=== PATIENT | male | born 1950 | race Caucasian/White ===

== ENCOUNTER 2017-11-04 15:49 | Inpatient (IN) | payer MEDICARE, OTHER ==
[2017-11-04] VITALS (7 sets, daily range): BP systolic 146–171; BP diastolic 75–91
[~2017-11-04] VITALS: Ht 177.8 cm; Wt 90.7 kg
--- OUTSIDE RECORDS SUMMARY | 2017-11-04 15:54 | XMS REPORT | Continuity of Care Document ---
Author Author [facility] Organization [facility] Address Unknown Phone Unavailable Allergies There is no data. Medications There is no data. Problems Date Dx Coded Attending Type Code Diagnosis Diagnosed By 11/05/2014 Ot 717.2 11/05/2014 Ot 719.06 Procedures There is no data. Results There is no data. Encounters ACCT No. Visit Date/Time Discharge Status Pt. Type Provider Facility Loc./Unit Complaint [id number] 05/05/2013 15:05:00 05/05/2013 23:59:59 [facility] Outpatient [id number] 03/05/2013 13:51:00 03/05/2013 23:59:59 [facility] Outpatient [id number] 10/13/2014 07:45:00 Document Registration
[2017-11-04] MEDS ORDERED: ALPR0.254 (15:59)
[2017-11-04] MEDS ORDERED: ALBU18HF2 (15:59)
[2017-11-04] MEDS ORDERED: LISI10TA2 (15:59)
[2017-11-04] MEDS ORDERED: LOVA20TA2 (15:59)
[2017-11-04] MEDS ORDERED: NS IV 1000 ML 1,000 ML IV SCH ×2 (16:07→16:45)
[2017-11-04 16:20] LABS: BASOPHILS % (AUTO) 0 % (0-10); EOSINOPHILS % (AUTO) 1 % (0-10); HEMATOCRIT 43 % (40-54); HEMOGLOBIN 14.8 G/DL (13.3-17.7); LYMPHOCYTES # (AUTO) 1.3 X 10^3 (1.0-4.0); LYMPHOCYTES % (AUTO) 15 % (12-44); MEAN CORPUSCULAR HEMOGLOBIN 32 PG (25-34); MEAN CORPUSCULAR HGB CONC 35 G/DL (32-36); MEAN CORPUSCULAR VOLUME 91 FL (80-99); MEAN PLATELET VOLUME 11.2 FL (7.4-10.4); MONOCYTES # (AUTO) 1.3 X 10^3 (0.0-1.0); MONOCYTES % (AUTO) 15 % (0-12); NEUTROPHILS # (AUTO) 5.8 X 10^3 (1.8-7.8); NEUTROPHILS % (AUTO) 69 % (42-75); PLATELET COUNT 193 10^3/uL (130-400); RED BLOOD COUNT 4.66 10^6/uL (4.35-5.85); RED CELL DISTRIBUTION WIDTH 13.6 % (10.0-14.5); WHITE BLOOD COUNT 8.5 10^3/uL (4.3-11.0)
[2017-11-04 16:41] LABS: ALANINE AMINOTRANSFERASE 23 U/L (0-55); ALBUMIN 4.3 GM/DL (3.2-4.5); ALKALINE PHOSPHATASE 87 U/L (40-136); BILIRUBIN,TOTAL 0.5 MG/DL (0.1-1.0); BUN/CREATININE RATIO 12; CALCIUM 8.8 MG/DL (8.5-10.1); CARBON DIOXIDE 22 MMOL/L (21-32); CHLORIDE 100 MMOL/L (98-107); CREATININE SERUM 1.11 MG/DL (0.60-1.30); GFR ESTIMATED > 60; GLUCOSE 170 MG/DL (70-105); POTASSIUM 5.5 MMOL/L (3.6-5.0); SODIUM 132 MMOL/L (135-145); TOTAL PROTEIN 7.6 GM/DL (6.4-8.2)
[2017-11-04] MEDS ORDERED: NS IV 1000 ML 1,000 ML IV ONE ×2 (17:00)
[2017-11-04 17:04] LABS: MAGNESIUM 2.7 MG/DL (1.8-2.4)
[2017-11-04 17:06] LABS: BILIRUBIN,URINE NEGATIVE (NEGATIVE); CLARITY,URINE CLEAR; COLOR,URINE YELLOW; GLUCOSE, URINE (UA) NEGATIVE (NEGATIVE); KETONES,URINE NEGATIVE (NEGATIVE); LEUKOCYTE ESTERASE ,URINE 2+ (NEGATIVE); NITRITE,URINE NEGATIVE (NEGATIVE); PH,URINE 6.5 (5-9); PROTEIN,URINE NEGATIVE (NEGATIVE); UROBILINOGEN,URINE NORMAL (NORMAL)
[2017-11-04 17:17] LABS: AMPHETAMINE SCREEN, URINE NEGATIVE (NEGATIVE); BARBITURATE SCREEN URINE NEGATIVE (NEGATIVE); BENZODIAZEPINES SCREEN URINE NEGATIVE (NEGATIVE); CANNABINOID SCREEN, URINE NEGATIVE (NEGATIVE); COCAINE SCREEN URINE NEGATIVE (NEGATIVE); METHADONE STAT NEGATIVE (NEGATIVE); METHAMPHETAMINE SCREEN URINE S NEGATIVE (NEGATIVE); OPIATE SCREEN URINE NEGATIVE (NEGATIVE); OXYCODONE STAT NEGATIVE (NEGATIVE); PROPOXYPHENE STAT NEGATIVE (NEGATIVE); TRICYCLIC ANTIDEPRESSANTS SCRE NEGATIVE (NEGATIVE)
[2017-11-04 17:19] LABS: BACTERIA,URINE TRACE /HPF
[2017-11-04 17:20] LABS: HYALINE CASTS, URINE RARE /LPF
[2017-11-04 17:26] LABS: TSH (THYROID ANALYZER) 2.56 UIU/ML (0.35-4.94)
--- NOTE | 2017-11-04 17:43 | Diagnostic Imaging Report ---
PROCEDURE: US carotid duplex, bilateral. TECHNIQUE: Multiple real-time grayscale images were obtained over the carotid arteries in various projections, bilaterally. Additional duplex Doppler and color Doppler images were also obtained. INDICATION: Syncope. COMPARISON: Bilateral carotid Doppler ultrasound, 05/05/2013. FINDINGS: Right carotid: There is mild atherosclerotic plaque within the right carotid bifurcation. Peak systolic velocity within the distal right internal carotid artery measures 129 cm/s, compatible with a 40-59% stenosis. Antegrade flow within the right vertebral artery. Left carotid: There is more moderate atherosclerotic plaque in the left carotid bifurcation, greatest in the proximal internal carotid artery. This results in greater than 50% narrowing on grayscale Doppler. Peak systolic velocity in the mid left internal carotid artery measures 155 cm/s, compatible with a 60-79% stenosis. Antegrade flow in the left vertebral artery. IMPRESSION: 1. Hemodynamically significant stenosis in the left internal carotid artery corresponding to a 60-79% stenosis. 2. Hemodynamically significant stenosis in the right internal carotid artery corresponding to a 40-59% stenosis. Dictated by: Dictated on workstation # [id number]
[2017-11-04 17:44] LABS: MYOGLOBIN SERUM 54.8 NG/ML (10.0-92.0)
--- NOTE | 2017-11-04 17:51 | Diagnostic Imaging Report ---
EXAM: Chest 1 view, AP/PA only. INDICATION: Weakness. Syncope. COMPARISON: None. FINDINGS: Normal heart size and pulmonary vascularity. No focal pulmonary opacity, pleural effusion or pneumothorax is seen. The left costophrenic angle is not included on the [id number]-[id number]. No acute osseous findings. Postoperative findings in the right proximal humerus. IMPRESSION: No acute cardiopulmonary findings. The left costophrenic angle is not included on the worft-sh-wiza. Dictated by: Dictated on workstation # [id number]
[2017-11-04] MEDS ORDERED: cefTRIAXone INJECTION 1,000 MG in NS (IVPB) 100 ML IV ONE (18:00)
--- NOTE | 2017-11-04 18:38 | ED General ---
General Chief Complaint: Dizziness/Syncope Stated Complaint: PASSED OUT Nursing Triage Note: patient reports was getting his hair cut and got lightheaded and felt like he was going to pass out Nursing Sepsis Screen: No Definite Risk History of Present Illness Date Seen by Provider: Nov 04, 2017 Time Seen by Provider: 15:53 Initial Comments This 67-year-old gentleman presents to the emergency room with primary complaint of syncope. His son was cutting his hair when he had complete loss of consciousness for perhaps up to 30 seconds. He reports fighting bronchitis recently and having issues with COPD. He has been coughing up some sputum. He does have periodic shortness of breath and tightness in his chest. He denies any cardiac problems. He denies any nausea, vomiting, or diarrhea. He quit smoking many years ago but he still drinks beer on average 3 days per week. He did drink last night when he went out with his son. He has had no alcohol today. He is notably tachycardic upon arrival. Patient states his son caught him during the syncopal episode and he had no injury. He has history of carotid stenosis which is monitored by Dr. Rao. His last ultrasound was about 10 months ago. Allergies and Home Medications Allergies Coded Allergies: No Known Drug Allergies (Unverified , 11/04/17) Patient Home Medication List Home Medication List Reviewed: Yes Constitutional: no symptoms reported EENTM: no symptoms reported Respiratory: see HPI Cardiovascular: see HPI Gastrointestinal: no symptoms reported Genitourinary: no symptoms reported Musculoskeletal: no symptoms reported Skin: no symptoms reported Psychiatric/Neurological: See HPI Hematologic/Lymphatic: No Symptoms Reported Past Vzrgjti-Otjnwh-Pcnubs Hx Patient Social History Alcohol Use: Regular Use Alcohol Beverage of Choice: Beer Recreational Drug Use: No Smoking Status: Former Smoker Recent Foreign Travel: No Contact w/Someone Who Travel: No Recent Infectious Disease Expo: No Physical Abuse: No Sexual Abuse: No Surgeries History of Surgeries: Yes Surgeries: Adenoidectomy, Appendectomy, Eye Surgery, Orthopedic (cervical fusion, right arm, mastoid), Tonsillectomy Respiratory History of Respiratory Disorde: Yes Respiratory Disorders: Chronic Bronchitis, COPD Cardiovascular History of Cardiac Disorders: Yes Cardiac Disorders: High Cholesterol, Hypertension, Peripheral Vascular ( carotid artery stenosis) Neurological History of Neurological Disord: No Genitourinary History of Genitourinary Disor: No Gastrointestinal History of Gastrointestinal Di: No Musculoskeletal History of Musculoskeletal Dis: No Endocrine History of Endocrine Disorders: No HEENT History of HEENT Disorders: No Cancer History of Cancer: No Psychosocial History of Psychiatric Problem: No Suicide Risk Score: 0 Integumentary History of Skin or Integumenta: No Blood Transfusions History of Blood Disorders: No Physical Exam Vital Signs Vital Signs - First Documented 11/04/17 15:55 Temp 98.1 Pulse 110 Resp 26 B/P (MAP) 143/84 (103) Pulse Ox 95 Capillary Refill : Less Than 3 Seconds General Appearance: No Apparent Distress, WD/WN HEENT: PERRL/EOMI, Normal ENT Inspection Neck: Normal Inspection Respiratory: Lungs Clear, Normal Breath Sounds, No Accessory Muscle Use, No Respiratory Distress Cardiovascular: No Edema, No Murmur, Tachycardia Gastrointestinal: Normal Bowel Sounds, Non Tender, Soft Extremity: Normal Capillary Refill, Normal Inspection, No Pedal Edema Neurologic/Psychiatric: Alert, Oriented x3, No Motor/Sensory Deficits, Normal Mood/Affect, medical technologist hematology II-XII Norm as Tested Skin: Normal Color, Warm/Dry Focused Exam Evaluation Lactate Level Laboratory Tests 11/04/17 18:40: Lactic Acid Level 0.82 Lactic Acid Level Laboratory Tests Test 11/04/17 18:40 Lactic Acid Level 0.82 MMOL/L (0.50-2.00) Progress/Results/Core Measures Suspected Sepsis Recent Fever Within 48 Hours: No Infection Criteria Present: None New/Unexplained Altered Menta: No Sepsis Screen: No Definite Risk Sepsis Diagnosis: SIRS Temperature:98.1 Pulse: 110 Respiratory Rate: 26 Laboratory Tests 11/04/17 15:55: White Blood Count 8.5 Blood Pressure 143 /84 Mean: 103 Laboratory Tests 11/04/17 18:40: Lactic Acid Level 0.82 Laboratory Tests 11/04/17 15:55: Creatinine 1.11, Platelet Count 193, Total Bilirubin 0.5 Results/Orders Lab Results Laboratory Tests Test 11/04/17 15:52 11/04/17 15:55 11/04/17 16:55 11/04/17 18:40 Range/Units D-Dimer 0.30 0.00-0.49 UG/ML White Blood Count 8.5 4.3-11.0 10^3/uL Red Blood Count 4.66 4.35-5.85 10^6/uL Hemoglobin 14.8 13.3-17.7 G/DL Hematocrit 43 40-54 % Mean Corpuscular Volume 91 80-99 FL Mean Corpuscular Hemoglobin 32 25-34 PG Mean Corpuscular Hemoglobin Concent 35 32-36 G/DL Red Cell Distribution Width 13.6 10.0-14.5 % Platelet Count 193 130-400 10^3/uL Mean Platelet Volume 11.2 H 7.4-10.4 FL Neutrophils (%) (Auto) 69 42-75 % Lymphocytes (%) (Auto) 15 12-44 % Monocytes (%) (Auto) 15 H 0-12 % Eosinophils (%) (Auto) 1 0-10 % Basophils (%) (Auto) 0 0-10 % Neutrophils # (Auto) 5.8 1.8-7.8 X 10^3 Lymphocytes # (Auto) 1.3 1.0-4.0 X 10^3 Monocytes # (Auto) 1.3 H 0.0-1.0 X 10^3 Eosinophils # (Auto) 0.0 0.0-0.3 10^3/uL Basophils # (Auto) 0.0 0.0-0.1 10^3/uL Sodium Level 132 L 135-145 MMOL/L Potassium Level 5.5 H 3.6-5.0 MMOL/L Chloride Level 100 98-107 MMOL/L Carbon Dioxide Level 22 21-32 MMOL/L Anion Gap 10 5-14 MMOL/L Blood Urea Nitrogen 13 7-18 MG/DL Creatinine 1.11 0.60-1.30 MG/DL Estimat Glomerular Filtration Rate > 60 BUN/Creatinine Ratio 12 Glucose Level 170 H 70-105 MG/DL Calcium Level 8.8 8.5-10.1 MG/DL Magnesium Level 2.7 H 1.8-2.4 MG/DL Total Bilirubin 0.5 0.1-1.0 MG/DL Aspartate Amino Transf (AST/SGOT) 33 5-34 U/L Alanine Aminotransferase (ALT/SGPT) 23 0-55 U/L Alkaline Phosphatase 87 40-136 U/L Total Creatine Kinase 129 30-200 U/L Myoglobin 54.8 10.0-92.0 NG/ML Troponin I < 0.30 <0.30 NG/ML C-Reactive Protein High Sensitivity 0.82 H 0.00-0.50 MG/DL Total Protein 7.6 6.4-8.2 GM/DL Albumin 4.3 3.2-4.5 GM/DL TSH [place] Testing 2.56 0.35-4.94 UIU/ML Serum Alcohol < 10 <10 MG/DL Urine Color YELLOW Urine Clarity CLEAR Urine pH 6.5 5-9 Urine Specific [place] 1.015 L 1.016-1.022 Urine Protein NEGATIVE NEGATIVE Urine Glucose (UA) NEGATIVE NEGATIVE Urine Ketones NEGATIVE NEGATIVE Urine Nitrite NEGATIVE NEGATIVE Urine Bilirubin NEGATIVE NEGATIVE Urine Urobilinogen NORMAL NORMAL MG/DL Urine Leukocyte Esterase 2+ H NEGATIVE Urine RBC (Auto) 1+ H NEGATIVE Urine RBC 5-10 H /HPF Urine WBC 10-25 H /HPF Urine Squamous Epithelial Cells 2-5 /HPF Urine Crystals NONE /LPF Urine Bacteria TRACE /HPF Urine Casts PRESENT /LPF Urine Hyaline Casts RARE /LPF Urine Mucus NEGATIVE /LPF Urine Culture Indicated YES Urine Opiates Screen NEGATIVE NEGATIVE Urine Oxycodone Screen NEGATIVE NEGATIVE Urine Methadone Screen NEGATIVE NEGATIVE Urine Propoxyphene Screen NEGATIVE NEGATIVE Urine Barbiturates Screen NEGATIVE NEGATIVE Ur Tricyclic Antidepressants Screen NEGATIVE NEGATIVE Urine Phencyclidine Screen NEGATIVE NEGATIVE Urine Amphetamines Screen NEGATIVE NEGATIVE Urine Methamphetamines Screen NEGATIVE NEGATIVE Urine Benzodiazepines Screen NEGATIVE NEGATIVE Urine Cocaine Screen NEGATIVE NEGATIVE Urine Cannabinoids Screen NEGATIVE NEGATIVE Lactic Acid Level 0.82 0.50-2.00 MMOL/L My Orders Orders - INESSA YODER MD Ekg Tracing (11/04/17 15:53) Cbc With Automated Diff (11/04/17 16:07) Comprehensive Metabolic Panel (11/04/17 16:07) Saline Lock/Iv-Start (11/04/17 16:07) Ns Iv 1000 Ml (Sodium Chloride 0.9%) (11/04/17 16:07) Monitor-Rhythm Ecg Trace Only (11/04/17 16:07) Alcohol (11/04/17 16:45) Hs C Reactive Protein (11/04/17 16:45) Drug Screen Stat (Urine) (11/04/17 16:45) Magnesium (11/04/17 16:45) Troponin I (11/04/17 16:45) Ua Culture If Indicated (11/04/17 16:45) Thyroid Analyzer (11/04/17 16:45) Ns Iv 1000 Ml (Sodium Chloride 0.9%) (11/04/17 16:45) Us Carotid Autumn Complete [id number] (11/04/17 16:47) Fibrin Degradation Products (11/04/17 16:57) Ns Iv 1000 Ml (Sodium Chloride 0.9%) (11/04/17 17:00) Ns Iv 1000 Ml (Sodium Chloride 0.9%) (11/04/17 17:00) Chest 1 View, Ap/Pa Only (11/04/17 17:02) Creatine Kinase (11/04/17 17:06) Myoglobin Serum (11/04/17 17:06) Urine Culture (11/04/17 16:55) Ceftriaxone Injection (Rocephin Injectio (11/04/17 18:00) Blood Culture (11/04/17 17:46) Lactic Acid Analyzer (11/04/17 17:46) Aspirin Tablet (Aspirin Tablet) (11/04/17 18:45) Medications Given in ED Current Medications Medications Dose Ordered Sig/Lilibeth Route Start Time Stop Time Status Last Admin Dose Admin Ceftriaxone Sodium 1000 mg/ Sodium Chloride 100 ml @ 200 mls/hr ONCE ONCE IV 11/04/17 18:00 11/04/17 18:29 DC 11/04/17 18:55 200 MLS/HR Vital Signs/I&O Vital Sign - Last 12Hours 11/04/17 11/04/17 15:55 19:14 Temp 98.1 Pulse 110 104 Resp 26 12 B/P (MAP) 143/84 (103) 149/85 Pulse Ox 95 96 Capillary Refill : Less Than 3 Seconds Blood Pressure Mean: 103 Progress Note : Progress Note Patient received 2 L of IV fluids and was still tachycardic in the 110s.. Urinary tract infection was found on urinalysis. Rocephin was administered after blood cultures and lactic acid were drawn. Aspirin was given due to chest tightness. Hyperkalemia was noted which was also treated with large volume fluid bolus. Carotid ultrasound was performed which showed a notable stenosis especially on the left which was up to 79 percent. Patient's dizziness resolved even with ambulation after he received the fluids. Given the circumstances of chest tightness, inappropriate sinus tachycardia, urinary tract infection, carotid stenosis, and syncope, admission for observation was felt appropriate. I discussed the case with Dr. Caraballo who requested cardiology consultation. Dr. Godinez was consulted and asked that aspirin be given and the patient be made NPO after a clear liquid breakfast. ECG Initial ECG Impression Date: Nov 04, 2017 Initial ECG Impression Time: 15:51 Initial ECG Rate: 122 Initial ECG Rhythm: S.Tach Comment Sinus tachycardia with no ST elevation or depression. No abnormal intervals or axis deviation. Diagnostic Imaging Diagonstic Imaging: Xray Plain Films/CT/US/NM/MRI: chest Comments Chest x-ray viewed by me and report reviewed. See report below: NAME: YISEL LIANG [facility] REC#: [id number] PT STATUS: REG ER : 1950 PHYSICIAN: INESSA YODER MD ADMIT DATE: 11/04/17/ER Signed Date of Exam: 11/04/17 CHEST 1 VIEW, AP/PA ONLY EXAM: Chest 1 view, AP/PA only. INDICATION: Weakness. Syncope. COMPARISON: None. FINDINGS: Normal heart size and pulmonary vascularity. No focal pulmonary opacity, pleural effusion or pneumothorax is seen. The left costophrenic angle is not included on the [id number]. No acute osseous findings. Postoperative findings in the right proximal humerus. IMPRESSION: No acute cardiopulmonary findings. The left costophrenic angle is not included on the osipu-sn-hunr. Dictated by: Dictated on workstation # [id number] Dict: 11/04/171746 Trans: 11/04/171808 Interpreted by: KIMMY MARCIAL MD Electronically signed by: KIMMY MARCIAL MD 11/04/171808 Diagonstic Imaging: Ultrasound Plain Films/CT/US/NM/MRI: other (bilateral carotid arteries) Comments NAME: YISEL LIANG [facility] REC#: [id number] PT STATUS: REG ER : 1950 PHYSICIAN: INESSA YODER MD ADMIT DATE: 11/04/17/ER Signed Date of Exam: 11/04/17 US CAROTID AUTUMN COMPLETE [id number] PROCEDURE: US carotid duplex, bilateral. TECHNIQUE: Multiple real-time grayscale images were obtained over the carotid arteries in various projections, bilaterally. Additional duplex Doppler and color Doppler images were also obtained. INDICATION: Syncope. COMPARISON: Bilateral carotid Doppler ultrasound, 05/05/2013. FINDINGS: Right carotid: There is mild atherosclerotic plaque within the right carotid bifurcation. Peak systolic velocity within the distal right internal carotid artery measures 129 cm/s, compatible with a 40-59% stenosis. Antegrade flow within the right vertebral artery. Left carotid: There is more moderate atherosclerotic plaque in the left carotid bifurcation, greatest in the proximal internal carotid artery. This results in greater than 50% narrowing on grayscale Doppler. Peak systolic velocity in the mid left internal carotid artery measures 155 cm/s, compatible with a 60-79% stenosis. Antegrade flow in the left vertebral artery. IMPRESSION: 1. Hemodynamically significant stenosis in the left internal carotid artery corresponding to a 60-79% stenosis. 2. Hemodynamically significant stenosis in the right internal carotid artery corresponding to a 40-59% stenosis. Dictated by: Dictated on workstation # [id number] Dict: 11/04/17 1736 Trans: 11/04/17 1810 Interpreted by: KIMMY MARCIAL MD Electronically signed by: KIMMY MARCIAL MD 11/04/17 1810 Departure Communication (Admissions) Time/Spoke to Admitting Phy: 17:[address] Grayson Time/Spoke to Consulting Phy: 18:22 Communication/Consulting Dr. Godinez Impression Impression: Primary Impression: Syncope Qualified Codes: R55 - Syncope and collapse Additional Impressions: Sinus tachycardia Chest tightness Urinary tract infection Qualified Codes: N39.0 - Urinary tract infection, site not specified Carotid artery stenosis Qualified Codes: I65.23 - Occlusion and stenosis of bilateral carotid arteries Hyperkalemia Disposition: ADMITTED INPATIENT Condition: Improved Admissions Decision to Admit Reason: Admit from ER (General) Decision to Admit/Date: Nov 04, 2017 Time/Decision to Admit Time: 16:00 Departure-Patient Inst. Referrals: JOSE EAST DO (PCP/Family) Primary Care Physician INESSA YODER MD Nov 04, 2017 18:38
[2017-11-04] MEDS ORDERED: ASPIRIN 325 MG (5 GR) TABLET PO ONE (18:45)
--- OUTSIDE RECORDS SUMMARY | 2017-11-04 18:47 | XMS REPORT | Continuity of Care Document ---
Author Author [facility] Organization [facility] Address Unknown Phone Unavailable Allergies There is no data. Medications There is no data. Problems Date Dx Coded Attending Type Code Diagnosis Diagnosed By 11/05/2014 Ot 717.2 11/05/2014 Ot 719.06 Procedures There is no data. Results There is no data. Encounters ACCT No. Visit Date/Time Discharge Status Pt. Type Provider Facility Loc./Unit Complaint [id number] 05/05/2013 15:05:00 05/05/2013 23:59:59 [facility] Outpatient [id number] 03/05/2013 13:51:00 03/05/2013 23:59:59 [facility] Outpatient [id number] 10/13/2014 07:45:00 Document Registration
[2017-11-04] MEDS ORDERED: 1/2 NS IV SOLUTION 1,000 ML IV PRN (20:28)
[2017-11-04] MEDS ORDERED: LORazepam INJ 2 MG/ML (ATIVAN) VIAL IM/IV PRN (20:30)
[2017-11-04] MEDS ORDERED: ONDANSETRON 4 MG/2 ML (SDV) Z0FRAN IV PRN ×2 (20:30)
[2017-11-04] MEDS ORDERED: D5 1/2 NS 1000 ML IV SOLUTION 1,000 ML IV PRN (20:30)
[2017-11-04] MEDS ORDERED: LORazepam 1 MG (ATIVAN) TAB PO PRN (20:30)
[2017-11-04] MEDS ORDERED: LORazepam INJ 2 MG/ML (ATIVAN) VIAL IV PRN (20:30)
[2017-11-04] MEDS ORDERED: ANTACID SUSP 30 ML UDC (MYLANTA) PO PRN (20:30)
[2017-11-04] MEDS ORDERED: ONDANSETRON 4 MG (ZOFRAN) ORAL DISSOLVE TAB SL PRN (20:30)
[2017-11-04] MEDS ORDERED: NITROGLYCERIN 0.4 MG SL TABS BTL 25'S SL PRN (20:30)
[2017-11-04] MEDS ORDERED: SENNA W/DOCUSATE (SENOKOT S) TABLET PO PRN (20:30)
[2017-11-04] MEDS: NS IV 1000 ML 1,000 ML IV SCH (20:50)
[2017-11-04] MEDS ORDERED: MAGNESIUM OXIDE (MAG-OX)400 MG TAB PO SCH (21:00)
[2017-11-04 22:14] LABS: CREATINE KINASE 115 U/L (30-200)
[2017-11-05] VITALS (7 sets, daily range): BP systolic 127–185; BP diastolic 79–94
[2017-11-05] MEDS: NS IV 1000 ML 1,000 ML IV SCH ×4 (04:47→23:44)
[2017-11-05 06:40] LABS: BASOPHILS % (AUTO) 0 % (0-10); EOSINOPHILS % (AUTO) 0 % (0-10); HEMATOCRIT 40 % (40-54); HEMOGLOBIN 13.6 G/DL (13.3-17.7); LYMPHOCYTES # (AUTO) 0.9 X 10^3 (1.0-4.0); LYMPHOCYTES % (AUTO) 11 % (12-44); MEAN CORPUSCULAR HEMOGLOBIN 31 PG (25-34); MEAN CORPUSCULAR HGB CONC 34 G/DL (32-36); MEAN CORPUSCULAR VOLUME 93 FL (80-99); MONOCYTES # (AUTO) 1.2 X 10^3 (0.0-1.0); MONOCYTES % (AUTO) 16 % (0-12); NEUTROPHILS # (AUTO) 5.8 X 10^3 (1.8-7.8); NEUTROPHILS % (AUTO) 73 % (42-75); PLATELET COUNT 177 10^3/uL (130-400); RED BLOOD COUNT 4.34 10^6/uL (4.35-5.85); RED CELL DISTRIBUTION WIDTH 13.5 % (10.0-14.5); WHITE BLOOD COUNT 7.9 10^3/uL (4.3-11.0)
[2017-11-05] MEDS ORDERED: MULTIVIT W/MINERALS TAB (THERAGRAN M) PO SCH (07:00)
[2017-11-05] MEDS ORDERED: THIAMINE 100 MG (VITAMIN B-1) TAB PO SCH (07:00)
[2017-11-05 07:21] LABS: BUN/CREATININE RATIO 14; CALCIUM 8.5 MG/DL (8.5-10.1); CARBON DIOXIDE 23 MMOL/L (21-32); CHLORIDE 105 MMOL/L (98-107); CHOLESTEROL 150 MG/DL (< 200); CREATININE SERUM 0.87 MG/DL (0.60-1.30); GFR ESTIMATED > 60; GLUCOSE 95 MG/DL (70-105); HDL CHOLESTEROL 35 MG/DL (40-60); POTASSIUM 4.3 MMOL/L (3.6-5.0); SODIUM 136 MMOL/L (135-145); TRIGLYCERIDES 117 MG/DL (<150); VLDL CHOLESTEROL 23 MG/DL (5-40)
--- NOTE | 2017-11-05 08:27 | History & Physicial ---
History of Present Illness History of Present Illness Reason for visit/HPI patient came out to the emergency room by car. Son cutting his hair and patient passed out. Patient had chest tightness that lasted several minutes. Patient complains of pain in the right groin and was found to the right knee this morning. patient sees Dr. Cosme for his carotid stenosis. Surgeries appendectomy, left arm, mastoid, tonsils, cervical fusion, appendectomy, and 2 cataracts and implants Date of Admission Nov 04, 2017 at 18:33 Time Seen by Provider: 08:15 I consulted on this patient on 11/05/17 08:21 Attending Physician Rochelle Grayson DO Admitting Physician Chau Bell DO Consult Allergies and Home Medications Allergies Coded Allergies: No Known Drug Allergies (Unverified , 11/04/17) Patient Home Medication List Home Medication List Reviewed: No Past Nyvhifh-Hypayt-Yxgroa Hx Patient Social History Marrital Status: Employed/Student: unemployed Alcohol Use: Regular Use Number of Drinks Today: 2 Alcohol Beverage of Choice: Beer Recreational Drug Use: No Smoking Status: Former Smoker Physical Abuse Screen: No Sexual Abuse: No Recent Foreign Travel: No Contact w/other who traveled: No Recent Hopitalizations: No Recent Infectious Disease Expo: No Immunizations Up To Date Date of Pneumonia Vaccine: Jul 06, 2016 Date of Influenza Vaccine: Jul 06, 2017 Seasonal Allergies Seasonal Allergies: No Surgeries Yes Adenoidectomy, Appendectomy, Eye Surgery, Orthopedic (cervical fusion, right arm , mastoid), Tonsillectomy Respiratory Yes Cardiovascular Yes High Cholesterol, Hypertension, Peripheral Vascular (carotid artery stenosis) Neurological No Genitourinary No Gastrointestinal Yes Polyps Musculoskeletal No Endocrine History of Endocrine Disorders: No HEENT History of HEENT Disorders: Yes HEENT Disorders: Cataract Hearing Impairment: Hard of Hearing Cancer No Psychosocial History of Psychiatric Problem: No Integumentary History of Skin or Integumenta: No Blood Transfusions History of Blood Disorders: No Constitutional: other (yncope) EENTM: no symptoms reported Respiratory: other (history of COPD) Cardiovascular: palpitations, other (hest tightness) Gastrointestinal: no symptoms reported Genitourinary: no symptoms reported Physical Exam Vital Signs Vital Signs - First Documented 11/04/17 15:55 Temp 98.1 Pulse 110 Resp 26 B/P (MAP) 143/84 (103) Pulse Ox 95 Capillary Refill : Less Than 3 Seconds General Appearance: No Apparent Distress, WD/WN Eyes: Bilateral Eye Normal Inspection HEENT: Normal ENT Inspection Neck: Full Range of Motion, Normal Inspection Respiratory: No Accessory Muscle Use, No Respiratory Distress, Decreased Breath Sounds Cardiovascular: Regular Rate, Rhythm Gastrointestinal: Non Tender Assessment/Plan Assessment and Plan syncope.. Tachycardia. uTI. Chest tightness. Carotid stenosis COPD. Degenerative arthritis Problems: Admission Diagnosis Admission Status: Observation Clinical Quality Measures DVT/VTE Risk/Contraindication: Risk Factor Score Per Nursin RFS Level Per Nursing on Admit: 3=High CHAU BELL DO Nov 05, 2017 08:27
[2017-11-05] MEDS: ENOXAPARIN 40 MG/0.4 ML (LOVENOX) SYR SC SCH (08:40)
[2017-11-05] MEDS: ASPIRIN 81 MG CHEW (CHILDREN'S ASA) PO SCH (08:40)
--- NOTE | 2017-11-05 08:55 | Consultation-Cardiology ---
HPI-Cardiology Cardiology Consultation: Date of Consultation 11/05/17 Time Seen by Provider: 08:45 Date of Admission 11-04-17 Attending Physician Rochelle Grayson DO Admitting Physician Chau Bell DO Consulting Physician Ericka Godinez MD HPI: Chief Complaint: Syncope Mr. Liang is a 67 year old male admitted to [facility] from the ED with c/o a syncopal episode. He reports he has been having generalized weakness for the last month. He states he was sitting on a stool yesterday while his son was cutting his hair and he began to feel weak. He reports then everything went black. He reports he did not fall to the floor. His son caught him. He reports he did not sustain any injury. He believes he was out for approx 30 secs. He denies any loss of bowel or bladder control. He reports he did have some blurred vision following the incident. He reports he has been having some dizziness with position changes for approx the last month. He reports he has been treated for an URI by his PCP since July. He reports he continues to have an occ lose productive cough. He denies any LE edema. He denies any n/v/ d. No c/o fever or chills. He reports he follows with Dr R[facility] d/t carotid disease and is d/t have his carotids scanned again in December 2017. He reports episodes of chest tightness, mid-sternal which lasts for a few minutes and then gradually resolve. It can occur without r/t activity or emotional stress. He reports episodes of palpitations are associated with the chest tightness. The discomfort is localized to the center of the chest. No other assoc symptoms. Review of Systems-Cardiology Review of Systems Constitutional: No chills, No fever, lightheadedness (with position changes), malaise, tiredness Eyes: blurred vision (yesterday following syncopal episode) Ears/Nose/Throat: No epistaxis, No recent hearing loss Respiratory: As described under HPI Cardiovascular: As described under HPI Gastrointestinal: No constipation, No diarrhea, No nausea, No vomiting Genitourinary: No dysuria, No hematuria Musculoskeletal: no symptoms reported Skin: No rash, No ulcerations Psychiatric/Neurological: syncope, No seizure, No focal weakness Hematologic: No bleeding abnormalities [id number]-Ldscxv Hx Patient Social History Marrital Status: Employed/Student: unemployed Alcohol Use: Regular Use Recreational Drug Use: No Smoking Status: Former Smoker Recent Foreign Travel: No Recent Infectious Disease Expo: No Hospitalization with Isolation: Denies Physical Abuse Screen: No Sexual Abuse: No Immunizations Up To Date Date of Pneumonia Vaccine: Jul 06, 2016 Date of Influenza Vaccine: Jul 06, 2017 Past Medical History PMH As described under Assessment. Family Medical History Family Medical History: He reports his mother had lung cancer. He reports his father had CAD and DM. He reports his father had an AK at age 79. Allergies and Home Medications Allergies Coded Allergies: No Known Drug Allergies (Unverified , 11/04/17) Home Medications Albuterol Sulfate 1 Puff Puff, 1 PUFF IH Q4H PRN for SHORTNESS OF BREATH, ( Reported) 1 PUFF = 90 MCG Alprazolam 0.25 Mg Tablet, 0.25 MG PO Q12HR PRN for ANXIETY, (Reported) Hydrocodone/Acetaminophen 1 Each Tablet, 1 EACH PO DAILY PRN for PAIN-MILD TO MODERATE, (Reported) Lisinopril 10 Mg Tablet, 10 MG PO DAILY, (Reported) Lovastatin 20 Mg Tablet, 20 MG PO DAILY, (Reported) Physical Exam-Cardiology Physical Exam Vital Signs/I&O Vital Sign - Last 12Hours 11/05/17 11/05/17 11/06/17 11/06/17 20:35 21:00 00:00 01:00 Temp 100.0 98.6 Pulse 102 102 93 Resp 20 18 B/P (MAP) 172/94 (120) 168/81 (110) Pulse Ox 95 96 O2 Delivery Room Air Room Air Room Air 11/06/17 04:00 Temp 99.6 Pulse 98 Resp 18 B/P (MAP) 138/75 (96) Pulse Ox 96 O2 Delivery Room Air Intake and Output 11/06/17 00:00 Intake Total 2250 ml Output Total 3100 ml Balance -850 ml Capillary Refill : Less Than 3 SecondsLess Than 3 Seconds Constitutional: AAO x 3 HEENT: PERRL, hearing is well preserved, No ulceration, No xanthelasmas are seen Neck: carotid pulses are 2 + bilaterally Respiratory: lungs clear to auscultation, other (prolonged expiratory phase) Cardiovascular: regular rate-rhythm, No JVD, S1 and S2 Gastrointestinal: audible bowel sounds Rectal: deferred Extremities: no lower extremity edema bilateral Neurologic/Psychiatric: grossly intact Skin: No rash, No ulcerations Data Review Labs Microbiology 11/04/17 Blood Culture - Preliminary, Resulted No growth 11/04/17 Urine Culture - Preliminary, Resulted Escherichia coli See Comments Radiology NAME: YISEL LIANG [facility] REC#: [id number] PT STATUS: REG ER : 1950 PHYSICIAN: INESSA YODER MD ADMIT DATE: 11/04/17/ER Signed Date of Exam: 11/04/17 US CAROTID AUTUMN COMPLETE [id number] PROCEDURE: US carotid duplex, bilateral. TECHNIQUE: Multiple real-time grayscale images were obtained over the carotid arteries in various projections, bilaterally. Additional duplex Doppler and color Doppler images were also obtained. INDICATION: Syncope. COMPARISON: Bilateral carotid Doppler ultrasound, 05/05/2013. FINDINGS: Right carotid: There is mild atherosclerotic plaque within the right carotid bifurcation. Peak systolic velocity within the distal right internal carotid artery measures 129 cm/s, compatible with a 40-59% stenosis. Antegrade flow within the right vertebral artery. Left carotid: There is more moderate atherosclerotic plaque in the left carotid bifurcation, greatest in the proximal internal carotid artery. This results in greater than 50% narrowing on grayscale Doppler. Peak systolic velocity in the mid left internal carotid artery measures 155 cm/s, compatible with a 60-79% stenosis. Antegrade flow in the left vertebral artery. IMPRESSION: 1. Hemodynamically significant stenosis in the left internal carotid artery corresponding to a 60-79% stenosis. 2. Hemodynamically significant stenosis in the right internal carotid artery corresponding to a 40-59% stenosis. Dictated by: Dictated on workstation # [id number] Dict: 11/04/171735 Trans: 11/04/171809 Interpreted by: KIMMY MARCIAL MD Electronically signed by: KIMMY MARCIAL MD 11/04/171809 NAME: YISEL LIANG [facility] REC#: [id number] PT STATUS: REG ER : 1950 PHYSICIAN: INESSA YODER MD ADMIT DATE: 11/04/17/ER Signed Date of Exam: 11/04/17 CHEST 1 VIEW, AP/PA ONLY EXAM: Chest 1 view, AP/PA only. INDICATION: Weakness. Syncope. COMPARISON: None. FINDINGS: Normal heart size and pulmonary vascularity. No focal pulmonary opacity, pleural effusion or pneumothorax is seen. The left costophrenic angle is not included on the [id number]. No acute osseous findings. Postoperative findings in the right proximal humerus. IMPRESSION: No acute cardiopulmonary findings. The left costophrenic angle is not included on the [id number]-ib-[id number]. Dictated by: Dictated on workstation # [id number] Dict: 11/04/171746 Trans: 11/04/171808 Interpreted by: KIMMY MARCIAL MD Electronically signed by: KIMMY MARCIAL MD 11/04/171808 ECG Impression ECG Initial ECG Rhythm: S.Tach A/P-Cardiology Assessment/Admission Diagnosis Syncopal episode of undetermined etiology Chest pain of undetermined etiology Palpitations of undetermined etiology Generalized weakness and fatigue for approx 1 month of undetermined etiology HTN HLP - statin tx COPD - follows with Dr. Monzon of pulmonary services at [facility] in [place], [place] H/O bilat carotid stenosis - follows with Dr. Rao [facility] in [place], [place] - last u/s December 2016 (has not been compliant with anti-platelet tx) Hemodynamically significant stenosis in the left internal carotid artery corresponding to a 60-79% stenosis. Hemodynamically significant stenosis in the right internal carotid artery corresponding to a 40-59% stenosis per u/s of November 04, 2017 Symptoms suggestive of sleep apnea C/O right groin discomfort following syncopal fall on 11-04-17 H/O cervical fusion by Dr. Osborne Quit smoking approx 25 years ago H/O mastoid surgery Family h/o CAD (father [place] at age 79) Clinical Quality Measures DVT/VTE Risk/Contraindication: Risk Factor Score Per Nursin RFS Level Per Nursing on Admit: 3=High CHETAN PETERS Nov 05, 2017 08:55
[2017-11-05] MEDS ORDERED: FOLIC ACID 1 MG TAB PO SCH (09:00)
[2017-11-05] MEDS ORDERED: ASPIRIN E.C. 325 MG (ECOTRIN) TABLET PO SCH (09:00)
[2017-11-05] MEDS ORDERED: ALPR0.254 PO (10:17)
[2017-11-05] MEDS ORDERED: LISI10TA2 PO (10:19)
[2017-11-05] MEDS ORDERED: LOVA20TA2 PO (10:20)
[2017-11-05] MEDS ORDERED: HYDR-3812 PO (10:21)
[2017-11-05] MEDS ORDERED: RT-ALBUINH IH (10:23)
[2017-11-05] MEDS ORDERED: REGADENOSON 0.4 MG/5 ML SYR (LEXISCAN) IV ONE ×2 (13:40→14:00)
[2017-11-05] MEDS ORDERED: CATHETER FLUSH 10 ML SYR IV ONE (14:00)
[2017-11-05] MEDS ORDERED: cefTRIAXone 1 GM/NS 100 ML IVPB IV SCH ×2 (18:00)
--- NOTE | 2017-11-05 19:04 | Consultation-Cardiology ---
HPI-Cardiology Cardiology Consultation: Date of Consultation 11/05/17 Time Seen by Provider: 18:15 Date of Admission Attending Physician Rochelle Grayson DO Admitting Physician Chau Bell DO Consulting Physician FACUNDO TITUS MD, MA, FACP, FACC, [facility], CCDS HPI: Chief Complaint: Syncope Mr. Pemberton is a 67 year old male admitted to [facility] from the ED with c/o a syncopal episode. He reports he has been having generalized weakness for the last month. He states he was sitting on a stool yesterday while his son was cutting his hair and he began to feel weak. He reports then everything went black. He reports he did not fall to the floor. His son caught him. He reports he did not sustain any injury. He believes he was out for approx 30 secs. He denies any loss of bowel or bladder control. He reports he did have some blurred vision following the incident. He reports he has been having some dizziness with position changes for approx the last month. He reports he has been treated for an URI by his PCP since July. He reports he continues to have an occ lose productive cough. He denies any LE edema. He denies any n/v/ d. No c/o fever or chills. He reports he follows with Dr [facility] d/t carotid disease and is d/t have his carotids scanned again in December 2017. He reports episodes of chest tightness, mid-sternal which lasts for a few minutes and then gradually resolve. It can occur without r/t activity or emotional stress. He reports episodes of palpitations are associated with the chest tightness. The discomfort is localized to the center of the chest. No other assoc symptoms. Review of Systems-Cardiology Review of Systems Constitutional: No chills, No fever, lightheadedness (with position changes), malaise, tiredness Eyes: blurred vision (yesterday following syncopal episode) Ears/Nose/Throat: No epistaxis, No recent hearing loss Respiratory: As described under HPI Cardiovascular: As described under HPI Gastrointestinal: No constipation, No diarrhea, No nausea, No vomiting Genitourinary: No dysuria, No hematuria Musculoskeletal: no symptoms reported Skin: No rash, No ulcerations Psychiatric/Neurological: syncope, No seizure, No focal weakness Hematologic: No bleeding abnormalities [id number]-Jbqdrj Hx Patient Social History Marrital Status: Employed/Student: unemployed Alcohol Use: Regular Use Recreational Drug Use: No Smoking Status: Former Smoker Recent Foreign Travel: No Recent Infectious Disease Expo: No Hospitalization with Isolation: Denies Physical Abuse Screen: No Sexual Abuse: No Immunizations Up To Date Date of Pneumonia Vaccine: Jul 06, 2016 Date of Influenza Vaccine: Jul 06, 2017 Past Medical History PMH As described under Assessment. Family Medical History Family Medical History: He reports his mother had lung cancer. He reports his father had CAD and DM. He reports his father had an [place] at age 79. Allergies and Home Medications Allergies Coded Allergies: No Known Drug Allergies (Unverified , 11/04/17) Home Medications Albuterol Sulfate 1 Puff Puff, 1 PUFF IH Q4H PRN for SHORTNESS OF BREATH, ( Reported) 1 PUFF = 90 MCG Alprazolam 0.25 Mg Tablet, 0.25 MG PO Q12HR PRN for ANXIETY, (Reported) Hydrocodone/Acetaminophen 1 Each Tablet, 1 EACH PO DAILY PRN for PAIN-MILD TO MODERATE, (Reported) Lisinopril 10 Mg Tablet, 10 MG PO DAILY, (Reported) Lovastatin 20 Mg Tablet, 20 MG PO DAILY, (Reported) Patient Home Medication List Home Medication List Reviewed: Yes Physical Exam-Cardiology Physical Exam Vital Signs/I&O Vital Sign - Last 12Hours 11/05/17 11/05/17 11/05/17 11/05/17 07:56 08:00 08:28 11:46 Temp 99.6 99.6 Pulse 98 115 102 Resp 20 20 B/P (MAP) 185/86 (119) 165/83 (110) Pulse Ox 96 100 O2 Delivery Room Air Room Air Room Air 11/05/17 11/05/17 11/05/17 12:55 13:51 16:05 Temp 98.9 Pulse 98 108 102 Resp 16 20 B/P (MAP) 127/81 (96) 165/79 (107) Pulse Ox 97 94 O2 Delivery Room Air Room Air Intake and Output 11/05/17 00:00 Intake Total 1000 ml Balance 1000 ml Capillary Refill : Less Than 3 SecondsLess Than 3 Seconds Constitutional: AAO x 3 HEENT: PERRL, hearing is well preserved, No ulceration, No xanthelasmas are seen Neck: carotid pulses are 2 + bilaterally Respiratory: lungs clear to auscultation, other (prolonged expiratory phase) Cardiovascular: regular rate-rhythm, No JVD, S1 and S2 Gastrointestinal: audible bowel sounds Rectal: deferred Extremities: no lower extremity edema bilateral Neurologic/Psychiatric: grossly intact Skin: No rash, No ulcerations Data Review Labs Laboratory Tests 11/04/17 21:50: Total Creatine Kinase 115, Troponin I < 0.30 11/05/17 05:28: White Blood Count 7.9, Red Blood Count 4.34L, Hemoglobin 13.6, Hematocrit 40, Mean Corpuscular Volume 93, Mean Corpuscular Hemoglobin 31, Mean Corpuscular Hemoglobin Concent 34, Red Cell Distribution Width 13.5, Platelet Count 177, Mean Platelet Volume 11.0H, Neutrophils (%) (Auto) 73, Lymphocytes (%) (Auto) 11L, Monocytes (%) (Auto) 16H, Eosinophils (%) (Auto) 0, Basophils (%) (Auto) 0 , Neutrophils # (Auto) 5.8, Lymphocytes # (Auto) 0.9L, Monocytes # (Auto) 1.2H, Eosinophils # (Auto) 0.0, Basophils # (Auto) 0.0, Sodium Level 136, Potassium Level 4.3, Chloride Level 105, Carbon Dioxide Level 23, Anion Gap 8, Blood Urea Nitrogen 12, Creatinine 0.87, Estimat Glomerular Filtration Rate > 60, BUN/ Creatinine Ratio 14, Glucose Level 95, Calcium Level 8.5, Triglycerides Level 117, Cholesterol Level 150, LDL Cholesterol Direct 99, VLDL Cholesterol 23, HDL Cholesterol 35L Microbiology 11/04/17 Blood Culture - Preliminary, Resulted No growth 11/04/17 Urine Culture - Preliminary, Resulted Escherichia coli See Comments A/P-Cardiology Assessment/Admission Diagnosis Syncopal episode, nonspecific chest pain, and some palpitations of undetermined etiology MPI of 11/05/17 did not show ischemia or infarction; LVEF was normal Echo of 11/05/17: LVEF 60%, PASP 20 mmHg E Coli UTI, being managed by the [facility] HTN HLP - statin tx COPD - follows with Dr. Monzon of pulmonary services at [facility] in [place], [place] H/O bilat carotid stenosis - follows with Dr. Rao [facility] in [place], [place] - last u/s December 2016 (has not been compliant with anti-platelet tx) Hemodynamically significant stenosis in the left internal carotid artery corresponding to a 60-79% stenosis. Hemodynamically significant stenosis in the right internal carotid artery corresponding to a 40-59% stenosis per u/s of November 04, 2017 Symptoms suggestive of sleep apnea C/O right groin discomfort following syncopal fall on 11-04-17 H/O cervical fusion by Dr. Osborne Quit smoking approx 25 years ago H/O mastoid surgery Family h/o CAD (father [place] at age 79) Discussion and Recomendations * I had a long discussion with the patient and his * Several recommendations made * We recommend implantation of ILR for eval for arrhythmia as a cause of syncope. He is considering * We discussed the results of today's noninvasive card w/u (summarized above) * We recommend addition of clopidogrel, given significant carotid arterial disease * We recommend therapy with beta-winston for hypertension and sinus tach. Will start with relatively low dose Clinical Quality Measures DVT/VTE Risk/Contraindication: Risk Factor Score Per Nursin RFS Level Per Nursing on Admit: 3=High FACUNDO TITUS MD FACP FAC CCDS Nov 05, 2017 19:04
[2017-11-05] MEDS ORDERED: CLOPIDOGREL 75 MG (PLAVIX) TABLET PO NR (19:15)
--- NOTE | 2017-11-05 23:54 | STRESS TEST ---
DATE OF SERVICE: 11/05/2017 RESTING AND POST REGADENOSON TECHNETIUM-99M TETROFOSMIN SPECT CT IMAGING ORDERING PHYSICIAN: Chasidy Fields APRN PRIMARY CARE PHYSICIAN: Dr. Bell. OTHER PHYSICIAN: Dr. Grayson. CLINICAL DIAGNOSIS: Syncope. Baseline images were carried out after injection of 10.71 mCi of technetium-99m Tetrofosmin. This was followed by 0.4 mg regadenoson and 32.4 mCi of technetium-99m Tetrofosmin for stress imaging. The electrocardiogram showed sinus rhythm throughout the study. Isolated premature atrial and ventricular contractions were seen. The electrocardiogram did not change significantly with the regadenoson infusion. He had some chest tightness following regadenoson infusion, which resolved in a few minutes. Review of images at rest and following stress does not indicate significant perfusion defects consistent with significant myocardial ischemia or infarction. Gated images show normal global left ventricular systolic function with normal regional wall motion. Left ventricular ejection fraction is calculated to be 52%. Left ventricular end diastolic volume is 81 mL. TID is absent (0.99). CONCLUSIONS: 1. No evidence of any significant myocardial ischemia or infarction on this study. 2. Normal regional wall motion. 3. Normal global left ventricular systolic function with a calculated ejection fraction of 52%. Job ID: [id number] DocumentID: [id number] Dictated Date: 11/05/2017 17:20:11 Job Checker Date: 11/05/2017 23:53:46 Dictated By: FACUNDO TITUS MD, MA, FACP, FACC,
[2017-11-06] VITALS: BP 168/81
[2017-11-06 04:00] VITALS: BP 138/75
[2017-11-06] MEDS: ENOXAPARIN 40 MG/0.4 ML (LOVENOX) SYR SC SCH (07:48)
[2017-11-06] MEDS: CLOPIDOGREL 75 MG (PLAVIX) TABLET PO SCH (07:48)
[2017-11-06] MEDS: ASPIRIN 81 MG CHEW (CHILDREN'S ASA) PO SCH (07:49)
[2017-11-06] MEDS: NS IV 1000 ML 1,000 ML IV SCH (07:49)
--- NOTE | 2017-11-06 07:55 | Progress Note (SOAP) ---
Subjective Time Seen by Provider: 07:50 Subjective/Events-last exam Syncope. UTI due to Escherichia coli. Sensitive to all antibiotics. Hypertension. COPD. Hyperlipidemia. Carotid artery disease being treated by Dr. Cosme in [place]. Chest discomfort. Patient's blood pressure elevated today. Patient's right ear hurts looks good inside Focused Exam Evaluation Lactate Level Laboratory Tests 11/04/17 18:40: Lactic Acid Level 0.82 Objective Exam Vital Signs Date Time Temp Pulse Resp B/P (MAP) Pulse Ox O2 Delivery O2 Flow Rate FiO2 11/06/17 04:00 99.6 98 18 138/75 (96) 96 Room Air 11/06/17 01:00 93 11/06/17 00:00 98.6 102 18 168/81 (110) 96 Room Air 11/05/17 21:00 Room Air 11/05/17 20:35 100.0 102 20 172/94 (120) 95 Room Air 11/05/17 19:00 104 11/05/17 16:05 98.9 102 20 165/79 (107) 94 Room Air 11/05/17 13:51 108 16 127/81 (96) 97 Room Air 11/05/17 12:55 98 11/05/17 11:46 99.6 102 20 165/83 (110) 100 Room Air 11/05/17 08:28 Room Air 11/05/17 08:00 99.6 115 20 185/86 (119) 96 Room Air 11/05/17 07:56 98 I & O 11/06/17 06:59 Intake Total 2750 ml Output Total 3550 ml Balance -800 ml Capillary Refill : Less Than 3 SecondsLess Than 3 Seconds General Appearance: No Apparent Distress, WD/WN HEENT: Normal ENT Inspection Neck: Normal Inspection Respiratory: No Accessory Muscle Use, No Respiratory Distress, Decreased Breath Sounds Cardiovascular: Regular Rate, Rhythm, No Murmur Gastrointestinal: non tender, soft Results Lab Microbiology 11/04/17 Blood Culture - Preliminary, Resulted No growth 11/04/17 Urine Culture - Preliminary, Resulted Escherichia coli See Comments Assessment/Plan Assessment/Plan Assess & Plan/Chief Complaint Syncope. UTI due to Escherichia coli. Hypertension. COPD. Hyperlipidemia. Patient willing to have cardiology to procedure Clinical Quality Measures Admission Status Admission Dx syncope.. Tachycardia. uTI. Chest tightness. Carotid stenosis COPD. Degenerative arthritis DVT/VTE Risk/Contraindication: Risk Factor Score Per Nursin RFS Level Per Nursing on Admit: 3=High JOSE EAST DO Nov 06, 2017 07:55
[2017-11-06 08:00] VITALS: BP 180/87
[2017-11-06] MEDS ORDERED: lisINopril 10 MG (PRINIVIL) TABLET PO NR ×2 (09:30)
[2017-11-06] MEDS ORDERED: PATIENT MAY USE OWN MEDS, ALL MC SCH (09:30)
[2017-11-06] MEDS ORDERED: LIDOCAINE 1% INJ 50 ML (XYLOCAINE) VIAL ONE (09:48)
--- NOTE | 2017-11-06 09:49 | Progress Note-Cardiology ---
Cardiology SOAP Progress Note Subjective: No cp or palp or syncope or shortness of breath since admission Objective: I&O/Vital Signs Vital Sign - Last 12Hours 11/06/17 11/06/17 11/06/17 11/06/17 00:00 01:00 04:00 07:00 Temp 98.6 99.6 Pulse 102 93 98 93 Resp 18 B/P (MAP) 168/81 (110) 138/75 (96) Pulse Ox 96 96 O2 Delivery Room Air Room Air Intake and Output 11/06/17 00:00 Intake Total 2250 ml Output Total 3100 ml Balance -850 ml Weight (Pounds): 200 Weight (Ounces): 0.0 Weight (Calculated Kilograms): 90.772426 Constitutional: AAO x 3 Respiratory: lungs clear to auscultation, other (prolonged expiratory phase) Cardiovascular: regular rate-rhythm, No JVD, S1 and S2 Gastrointestional: audible bowel sounds Extremities: no lower extremity edema bilateral Neurologic/Psychiatric: grossly intact Skin: No rash, No ulcerations Results/Procedures: Labs Microbiology 11/04/17 Blood Culture - Preliminary, Resulted No growth 11/04/17 Urine Culture - Preliminary, Resulted Escherichia coli See Comments Laboratory Tests 11/04/17 15:55 11/05/17 05:28 A/P: Assessment: Syncopal episode, nonspecific chest pain, and some palpitations of undetermined etiology MPI of 11/05/17 did not show ischemia or infarction; LVEF was normal Echo of 11/05/17: LVEF 60%, PASP 20 mmHg E Coli UTI, being managed by the [facility] HTN HLP - statin tx COPD - follows with Dr. Monzon of pulmonary services at [facility] in [place], [place] H/O bilat carotid stenosis - follows with Dr. Rao of [facility] in [place], [place] - last u/s December 2016 (has not been compliant with anti-platelet tx). Last carotid u /s at [facility] on 11/04/17: LICA 60-79% stenosis, ALLEN stenosis 40-59% Symptoms suggestive of sleep apnea C/O right groin discomfort following syncopal fall on 11-04-17, followed by Dr Bell H/O cervical fusion by Dr. Osborne Quit smoking approx 25 years ago H/O mastoid surgery Family h/o CAD (father [place] at age 79) Plan: * I had a long discussion with the patient and his again * We again discussed yesterday's recs * We are resuming his home anti-htn med (lisinopril) and his statin * We recommend addition of clopidogrel, given significant carotid arterial disease * He provides informed consent for ILR to eval his syncope and palp that are quite infrequent FACUNDO TITUS MD FACP FAC CCDS Nov 06, 2017 09:49
[2017-11-06 12:00] VITALS: BP 145/75
[2017-11-06] MEDS: AMOXICILLIN 500 MG (POLYMOX) CAP PO SCH ×3 (13:50→20:58)
[2017-11-06] MEDS: ACETAMINOPHEN 500 MG TAB (TYLENOL) PO PRN ×2 (13:50→19:44)
[2017-11-06] MEDS ORDERED: CHLORASEPTIC LOZENGE MM PRN (14:00)
[2017-11-06 15:27] VITALS: BP 133/71
--- NOTE | 2017-11-06 15:43 | OPERATIVE REPORT ---
DATE OF SERVICE: 11/05/2017 PREOPERATIVE DIAGNOSIS: Syncope, palpitations. POSTOPERATIVE DIAGNOSIS: Syncope, palpitations. PROCEDURE: Implantable loop recorder implantation. The patient is a 67-year-old man who has experienced syncope and palpitations. Symptoms are infrequent. Implantable loop recorder implantation was carried out after having obtained informed consent. [facility] The left prepectoral area was prepared and draped in the usual sterile fashion. The implantation was carried out to the left of the sternum and around the fourth intercostal space. We used 1% lidocaine for local anesthesia. We used the tools provided with the Medtronic Reveal LINQ device to make a subcutaneous pocket into which the device was placed. This is Medtronic LINQ device with serial #[id number]. The incision was closed with Dermabond and Steri-Strips. He tolerated the procedure well. Job ID: [id number] DocumentID: [id number] Dictated Date: 11/06/2017 10:12:33 Gold Frame Assembler Date: 11/06/2017 14:25:28 Dictated By: FACUNDO TITUS MD, MA, FACP, FACC,
[2017-11-06 19:49] VITALS: BP 165/80
[2017-11-06] MEDS: BENZONATATE 100 MG (TESSALON) CAPSULE PO SCH (20:58)
[2017-11-06] MEDS: LORATADINE (CLARITIN) 10 MG TAB PO SCH (20:58)
[2017-11-06] MEDS: LOVASTATIN 20 MG PO SCH (20:59)
[2017-11-06] MEDS ORDERED: ALPRAZolam 0.25 MG (XANAX) TAB PO PRN (21:15)
[2017-11-06] MEDS ORDERED: HYDROcodone/APAP 5 MG/325 MG (LORTAB) TAB PO PRN (21:15)
--- NOTE | 2017-11-06 21:26 | Diagnostic Imaging Report ---
EXAM: CHEST PA/LAT (2 VIEW) INDICATION: Wheezing and cough. COMPARISON: Chest radiograph 11/04/2017. FINDINGS: Normal heart size and pulmonary vascularity. There has been development of a mild interstitial and airspace opacity in the right lung base. No pleural effusion or pneumothorax. Loop recorder. No acute osseous findings. IMPRESSION: Interval development of a mild interstitial and airspace opacity in the right lower lobe may represent pneumonitis, possibly atelectasis. Dictated by: Dictated on workstation # [id number]
[2017-11-06] MEDS: RT-ALBUTEROL SULF 2.5 MG/3 ML PRE-MIX VIAL INH SCH (21:28)
[2017-11-07] VITALS: BP 130/71
[2017-11-07] MEDS: RT-ALBUTEROL SULF 2.5 MG/3 ML PRE-MIX VIAL INH SCH ×4 (03:45→19:50)
[2017-11-07] MEDS: ACETAMINOPHEN 500 MG TAB (TYLENOL) PO PRN ×3 (03:47→21:04)
[2017-11-07 04:00] VITALS: BP 139/69
[2017-11-07 06:40] LABS: HEMOGLOBIN 13.4 G/DL (13.3-17.7); MEAN PLATELET VOLUME 10.5 FL (7.4-10.4); RED BLOOD COUNT 4.28 10^6/uL (4.35-5.85); RED CELL DISTRIBUTION WIDTH 13.3 % (10.0-14.5); WHITE BLOOD COUNT 5.4 10^3/uL (4.3-11.0)
[2017-11-07 07:10] LABS: BUN/CREATININE RATIO 13; CARBON DIOXIDE 27 MMOL/L (21-32); CHLORIDE 105 MMOL/L (98-107); CREATININE SERUM 0.87 MG/DL (0.60-1.30); GFR ESTIMATED > 60; GLUCOSE 113 MG/DL (70-105); POTASSIUM 4.2 MMOL/L (3.6-5.0); SODIUM 140 MMOL/L (135-145)
[2017-11-07 08:00] VITALS: BP 136/69
--- NOTE | 2017-11-07 08:07 | Progress Note (SOAP) ---
Subjective Time Seen by Provider: 08:00 Subjective/Events-last exam Chest x-ray last night shows pneumonia. Patient overall feeling better by 70 percent. Blood pressure under control. Right ear improving. Do chest x-ray tomorrow to check on pneumonia. To put on IV antibiotics. Focused Exam Evaluation Lactate Level Laboratory Tests 11/04/17 18:40: Lactic Acid Level 0.82 Objective Exam Vital Signs Date Time Temp Pulse Resp B/P (MAP) Pulse Ox O2 Delivery O2 Flow Rate FiO2 11/07/17 07:00 89 11/07/17 04:00 98.5 120 20 139/69 (92) 93 Room Air 11/07/17 03:45 93 Room Air 11/07/17 01:00 84 11/07/17 00:00 97.4 95 16 130/71 (90) 96 Room Air 11/06/17 21:28 95 Room Air 11/06/17 21:00 Room Air 11/06/17 19:49 98.0 99 18 165/80 (108) 95 Room Air 11/06/17 19:00 89 11/06/17 15:27 98.7 92 18 133/71 (91) 97 Room Air 11/06/17 13:00 99 11/06/17 12:00 98.9 97 20 145/75 (98) 95 Room Air 11/06/17 09:00 Room Air I & O 11/07/17 07:00 Intake Total 1120 ml Output Total 3250 ml Balance -2130 ml Capillary Refill : Less Than 3 SecondsLess Than 3 Seconds General Appearance: No Apparent Distress, WD/WN HEENT: Normal ENT Inspection Neck: Full Range of Motion, Normal Inspection Respiratory: No Accessory Muscle Use, No Respiratory Distress, Other (Some congestion) Cardiovascular: Regular Rate, Rhythm, No Murmur Gastrointestinal: non tender, soft Results Lab Laboratory Tests 11/07/17 06:29 Laboratory Tests 11/07/17 06:29: White Blood Count 5.4, Red Blood Count 4.28L, Hemoglobin 13.4, Hematocrit 40, Mean Corpuscular Volume 93, Mean Corpuscular Hemoglobin 31, Mean Corpuscular Hemoglobin Concent 34, Red Cell Distribution Width 13.3, Platelet Count 176, Mean Platelet Volume 10.5H, Sodium Level 140, Potassium Level 4.2, Chloride Level 105, Carbon Dioxide Level 27, Anion Gap 8, Blood Urea Nitrogen 11, Creatinine 0.87, Estimat Glomerular Filtration Rate > 60, BUN/Creatinine Ratio 13, Glucose Level 113H, Calcium Level 9.0 Microbiology 11/04/17 Blood Culture - Preliminary, Resulted No growth 11/04/17 Urine Culture - Final, Complete Escherichia coli See Comments Assessment/Plan Assessment/Plan Assess & Plan/Chief Complaint Syncope. UTI due to Escherichia coli. Hypertension. COPD. Hyperlipidemia. Patient willing to have cardiology to procedure. . /11/21. Syncope. UTI. Hypertension. COPD. Hyperlipidemia. Pneumonia Clinical Quality Measures Admission Status Admission Dx syncope.. Tachycardia. uTI. Chest tightness. Carotid stenosis COPD. Degenerative arthritis DVT/VTE Risk/Contraindication: Risk Factor Score Per Nursin RFS Level Per Nursing on Admit: 3=High JOSE EAST DO Nov 07, 2017 08:07
[2017-11-07] MEDS ORDERED: CLOP75TA28 PO (08:58)
[2017-11-07] MEDS ORDERED: METO-387 PO (08:58)
--- NOTE | 2017-11-07 08:59 | Progress Note-Cardiology ---
Cardiology SOAP Progress Note Subjective: Feels better compared to time of admission Has mild cough productive of small qty of yellowish sputum No discomfort at site of device implantation Denies cp or palp or syncope or shortness of breath Objective: I&O/Vital Signs Vital Sign - Last 12Hours 11/06/17 11/06/17 11/07/17 11/07/17 21:00 21:28 00:00 01:00 Temp 97.4 Pulse 95 84 Resp 16 B/P (MAP) 130/71 (90) Pulse Ox 95 96 O2 Delivery Room Air Room Air Room Air 11/07/17 11/07/17 11/07/17 03:45 04:00 07:00 Temp 98.5 Pulse 120 89 Resp 20 B/P (MAP) 139/69 (92) Pulse Ox 93 93 O2 Delivery Room Air Room Air Intake and Output 11/07/17 00:00 Intake Total 920 ml Output Total 1850 ml Balance -930 ml Weight (Pounds): 200 Weight (Ounces): 0.0 Weight (Calculated Kilograms): [id number] Constitutional: AAO x 3 Respiratory: lungs clear to auscultation, other (prolonged expiratory phase) Cardiovascular: regular rate-rhythm, No JVD, S1 and S2 Gastrointestional: audible bowel sounds Extremities: no lower extremity edema bilateral Neurologic/Psychiatric: grossly intact Skin: No rash, No ulcerations Results/Procedures: Labs Laboratory Tests 11/07/17 06:29: White Blood Count 5.4, Red Blood Count 4.28L, Hemoglobin 13.4, Hematocrit 40, Mean Corpuscular Volume 93, Mean Corpuscular Hemoglobin 31, Mean Corpuscular Hemoglobin Concent 34, Red Cell Distribution Width 13.3, Platelet Count 176, Mean Platelet Volume 10.5H, Sodium Level 140, Potassium Level 4.2, Chloride Level 105, Carbon Dioxide Level 27, Anion Gap 8, Blood Urea Nitrogen 11, Creatinine 0.87, Estimat Glomerular Filtration Rate > 60, BUN/Creatinine Ratio 13, Glucose Level 113H, Calcium Level 9.0 Microbiology 11/04/17 Blood Culture - Preliminary, Resulted No growth 11/06/17 Throat Culture - Preliminary, Resulted No Beta Strep isolated 11/04/17 Urine Culture - Final, Complete Escherichia coli See Comments Laboratory Tests 11/07/17 06:29 A/P: Assessment: Syncopal episode, nonspecific chest pain, and some palpitations of undetermined etiology S/p ILR (Medtronic LINQ) placement on 11/06/17 MPI of 11/05/17 did not show ischemia or infarction; LVEF was normal Echo of 11/05/17: LVEF 60%, PASP 20 mmHg E Coli UTI, being managed by the [facility] HTN HLP - statin tx COPD - follows with Dr. Monzon of pulmonary services at [facility] in [place], [place] H/O bilat carotid stenosis - follows with Dr. Rao of [facility] in [place], [place] - last u/s December 2016 (has not been compliant with anti-platelet tx). Last carotid u /s at [facility] on 11/04/17: LICA 60-79% stenosis, ALLEN stenosis 40-59% Symptoms suggestive of sleep apnea C/O right groin discomfort following syncopal fall on 11-04-17, followed by Dr Bell H/O cervical fusion by Dr. Osborne Quit smoking approx 25 years ago H/O mastoid surgery Family h/o CAD (father CT at age 79) Plan: * Ok for d/c from card standpoint * Continue current regimen * F/u at our office for wound check on 11/09/17 and doctor visit in 2 weeks * I had a discussion regarding his CV issues with him and his and answered questions FACUNDO TITUS MD FACP FAC CCDS Nov 07, 2017 08:59
[2017-11-07] MEDS: CLOPIDOGREL 75 MG (PLAVIX) TABLET PO SCH (09:11)
[2017-11-07] MEDS: ASPIRIN 81 MG CHEW (CHILDREN'S ASA) PO SCH (09:11)
[2017-11-07] MEDS: ENOXAPARIN 40 MG/0.4 ML (LOVENOX) SYR SC SCH (09:11)
[2017-11-07] MEDS: lisINopril 10 MG (PRINIVIL) TABLET PO SCH (09:12)
[2017-11-07] MEDS: LORATADINE (CLARITIN) 10 MG TAB PO SCH (09:12)
[2017-11-07] MEDS: cefTRIAXone INJECTION 1,000 MG in NS (IVPB) 100 ML IV SCH (09:12)
[2017-11-07] MEDS: BENZONATATE 100 MG (TESSALON) CAPSULE PO SCH ×3 (09:23→21:04)
[2017-11-07] MEDS ORDERED: MILK OF MAGNESIA 400 MG/5 ML 30 ML UDC PO PRN (09:30)
[2017-11-07] MEDS: NS IV 1000 ML 1,000 ML IV SCH (11:23)
[2017-11-07 12:00] VITALS: BP 146/72
[2017-11-07 12:15] LABS: BILIRUBIN,URINE NEGATIVE (NEGATIVE); CLARITY,URINE CLEAR; COLOR,URINE YELLOW; GLUCOSE, URINE (UA) NEGATIVE (NEGATIVE); KETONES,URINE NEGATIVE (NEGATIVE); LEUKOCYTE ESTERASE ,URINE 2+ (NEGATIVE); NITRITE,URINE NEGATIVE (NEGATIVE); PH,URINE 6.5 (5-9); PROTEIN,URINE NEGATIVE (NEGATIVE); UROBILINOGEN,URINE NORMAL (NORMAL)
[2017-11-07 12:28] LABS: BACTERIA,URINE TRACE /HPF
[2017-11-07 15:33] VITALS: BP 145/67
[2017-11-07 20:24] VITALS: BP 135/82
[2017-11-07] MEDS: LOVASTATIN 20 MG PO SCH (21:04)
[2017-11-08] VITALS: BP 142/79
[2017-11-08] MEDS: RT-ALBUTEROL SULF 2.5 MG/3 ML PRE-MIX VIAL INH SCH ×4 (03:21→18:08)
[2017-11-08 04:00] VITALS: BP 154/70
[2017-11-08 06:46] LABS: HEMOGLOBIN 13.5 G/DL (13.3-17.7); MEAN PLATELET VOLUME 10.6 FL (7.4-10.4); RED BLOOD COUNT 4.27 10^6/uL (4.35-5.85); RED CELL DISTRIBUTION WIDTH 13.4 % (10.0-14.5); WHITE BLOOD COUNT 4.6 10^3/uL (4.3-11.0)
[2017-11-08 07:15] LABS: BUN/CREATININE RATIO 13; CALCIUM 9.1 MG/DL (8.5-10.1); CARBON DIOXIDE 23 MMOL/L (21-32); CHLORIDE 104 MMOL/L (98-107); CREATININE SERUM 0.84 MG/DL (0.60-1.30); GFR ESTIMATED > 60; GLUCOSE 100 MG/DL (70-105); POTASSIUM 4.2 MMOL/L (3.6-5.0); SODIUM 139 MMOL/L (135-145)
[2017-11-08] MEDS: lisINopril 10 MG (PRINIVIL) TABLET PO SCH (07:34)
[2017-11-08] MEDS: CLOPIDOGREL 75 MG (PLAVIX) TABLET PO SCH (07:34)
[2017-11-08] MEDS: ACETAMINOPHEN 500 MG TAB (TYLENOL) PO PRN ×2 (07:34→13:58)
[2017-11-08] MEDS: BENZONATATE 100 MG (TESSALON) CAPSULE PO SCH ×3 (07:34→21:21)
[2017-11-08] MEDS: LORATADINE (CLARITIN) 10 MG TAB PO SCH (07:34)
[2017-11-08] MEDS: ASPIRIN 81 MG CHEW (CHILDREN'S ASA) PO SCH (07:34)
[2017-11-08] MEDS: ENOXAPARIN 40 MG/0.4 ML (LOVENOX) SYR SC SCH (07:35)
[2017-11-08] MEDS: cefTRIAXone INJECTION 1,000 MG in NS (IVPB) 100 ML IV SCH (07:35)
--- NOTE | 2017-11-08 07:35 | Progress Note (SOAP) ---
Subjective Time Seen by Provider: 07:30 Subjective/Events-last exam Patient feeling better today. UTI sensitive to all antibiotics. Waiting on chest x-ray report from pneumonia. Patient has a little discomfort by the right ear. Nurse to call at 11 a.m. for discharge today. Tachycardia better. Chest pain none. Syncope resolved. Objective Exam Vital Signs Date Time Temp Pulse Resp B/P (MAP) Pulse Ox O2 Delivery O2 Flow Rate FiO2 11/08/17 07:22 93 Room Air 11/08/17 04:00 98.3 94 18 154/70 (98) 94 Room Air 11/08/17 03:21 92 Room Air 11/08/17 01:00 78 11/08/17 00:00 97.9 88 18 142/79 (100) 97 Room Air 11/07/17 21:00 Room Air 11/07/17 20:24 97.6 90 20 135/82 (99) 95 Room Air 11/07/17 19:50 95 Room Air 11/07/17 19:00 89 11/07/17 15:33 98.2 97 20 145/67 (93) 95 Room Air 11/07/17 14:44 95 Room Air 11/07/17 12:00 98.1 95 20 146/72 (96) 96 Room Air 11/07/17 09:26 95 Room Air 11/07/17 09:00 Room Air 11/07/17 08:00 98.0 81 20 136/69 (91) 96 Room Air I & O 11/08/17 07:00 Intake Total 1790 ml Output Total 2000 ml Balance -210 ml Capillary Refill : Less Than 3 SecondsLess Than 3 Seconds General Appearance: No Apparent Distress, WD/WN HEENT: Normal ENT Inspection Neck: Full Range of Motion, Normal Inspection Respiratory: No Accessory Muscle Use, No Respiratory Distress, Decreased Breath Sounds Cardiovascular: Regular Rate, Rhythm, No Murmur Gastrointestinal: non tender, soft Results Lab Laboratory Tests 11/07/17 12:00: Urine Color YELLOW, Urine Clarity CLEAR, Urine pH 6.5, Urine Specific [place] 1.015L, Urine Protein NEGATIVE, Urine Glucose (UA) NEGATIVE, Urine Ketones NEGATIVE, Urine Nitrite NEGATIVE, Urine Bilirubin NEGATIVE, Urine Urobilinogen NORMAL, Urine Leukocyte Esterase 2+H, Urine RBC (Auto) NEGATIVE, Urine RBC NONE , Urine WBC 5-10H, Urine Squamous Epithelial Cells 2-5, Urine Crystals NONE, Urine Bacteria TRACE, Urine Casts NONE, Urine Mucus NEGATIVE, Urine Culture Indicated YES 11/08/17 06:33: White Blood Count 4.6, Red Blood Count 4.27L, Hemoglobin 13.5, Hematocrit 40, Mean Corpuscular Volume 93, Mean Corpuscular Hemoglobin 32, Mean Corpuscular Hemoglobin Concent 34, Red Cell Distribution Width 13.4, Platelet Count 171, Mean Platelet Volume 10.6H, Sodium Level 139, Potassium Level 4.2, Chloride Level 104, Carbon Dioxide Level 23, Anion Gap 12, Blood Urea Nitrogen 11, Creatinine 0.84, Estimat Glomerular Filtration Rate > 60, BUN/Creatinine Ratio 13, Glucose Level 100, Calcium Level 9.1 Microbiology 11/04/17 Blood Culture - Preliminary, Resulted No growth 11/06/17 Throat Culture - Preliminary, Resulted No Beta Strep isolated 11/04/17 Urine Culture - Final, Complete Escherichia coli See Comments Assessment/Plan Assessment/Plan Assess & Plan/Chief Complaint Syncope. UTI due to Escherichia coli. Hypertension. COPD. Hyperlipidemia. Patient willing to have cardiology to procedure. . /11/21. Syncope. UTI. Hypertension. COPD. Hyperlipidemia. Pneumonia. . 11/08/17. Syncope resolved. UTI on antibiotic hypertension better. COPD. Hyperlipidemia. Pneumonia. Lungs are sounding better. Waiting a chest x-ray report. Plan to discharge today. Nurse to call at 11 a.m. Clinical Quality Measures Admission Status Admission Dx syncope.. Tachycardia. uTI. Chest tightness. Carotid stenosis COPD. Degenerative arthritis DVT/VTE Risk/Contraindication: Risk Factor Score Per Nursin RFS Level Per Nursing on Admit: 3=High JOSE EAST DO Nov 08, 2017 07:35
--- NOTE | 2017-11-08 07:49 | Cardiology Progress Note ---
Subjective Date Seen by Provider: Nov 08, 2017 Time Seen by Provider: 07:46 Subjective/Events-last exam Patient is sitting in bed, feeling better, breathing is better. Denied any chest pain or palpitation, event since admission were reviewed Review of Systems General: No Chills, No Night Sweats, No Fatigue, No Malaise, No Appetite, No Other HEENT: No Head Aches, No Visual Changes, No Eye Pain, No Ear Pain, No Dysphasia , No Sinus Congestion, No Post Nasal Drip, No Sore Throat, No Other Pulmonary: No Dyspnea, No Cough, No Pleuritic Chest Pain, No Other Cardiovascular: No: Chest Pain, Palpitations, Orthopnea, Paroxysmal Noc. Dyspnea, Edema, Lt Headedness, Other Objective-Cardiology Exam Last Set of Vital Signs Vital Signs 11/08/17 11/08/17 11/08/17 04:00 07:00 07:22 Temp 98.3 Pulse 93 Resp 18 B/P (MAP) 154/70 (98) Pulse Ox 93 O2 Delivery Room Air Capillary Refill : Less Than 3 SecondsLess Than 3 Seconds I&O Intake and Output 11/08/17 00:00 Intake Total 1790 ml Output Total 2300 ml Balance -510 ml Intake Oral 1690 ml IV Total 100 ml Output Urine Total 2300 ml # Voids 1 General: Alert, Oriented X3, Cooperative HEENT: Atraumatic, PERRLA Neck: Supple, No JVD, No Thyromegaly Lungs: Clear to Auscultation, Normal Air Movement Heart: Regular Rate, Normal S1, Normal S2, No Murmurs Abdomen: Normal Bowel Sounds, Soft, No Tenderness, No Hepatosplenomegaly, No Masses Extremities: No Clubbing, No Cyanosis, No Edema, Normal Pulses, No Tenderness/ Swelling Skin: No Rashes, No Breakdown, No Significant Lesion Neuro: Normal Gait, Normal Speech, Strength at 5/5 X4 Ext, Normal Tone, Sensation Intact Psych/Mental Status: Mental Status NL, Mood NL Results Lab Laboratory Tests 11/08/17 06:33 A/P-Cardiology Admission Diagnosis Syncope Hypertension Hyperlipidemia Carotid stenosis Assessment/Plan Syncopal episode, nonspecific chest pain, and some palpitations of undetermined etiology, reporting that he is feeling better. No further episodes were reported. Continue to monitor S/p ILR (Medtronic LINQ) placement on 11/06/17, followed by Dr. Godinez. MPI of 11/05/17 did not show ischemia or infarction; LVEF was normal, Echo of : LVEF 60%, PASP 20 mmHg, followed by Dr. Godinez E Coli UTI[facility], good control at this time, maintained on Toprol 25 and Zestril 10 mg, try to avoid hypotension especially with the recent syncope. Monitor blood pressure as an outpatient HLP - statin tx, followed by Dr. Godinez COPD - follows with Dr. Monzon of pulmonary services at [facility] in [place], [place] H/O bilat carotid stenosis - follows with Dr. Rao of [place] in [place], [place] - last u/s December 2016 (has not been compliant with anti-platelet tx). Last carotid u /s at [facility] on 11/04/17: LICA 60-79% stenosis, ALLEN stenosis 40-59% Symptoms suggestive of sleep apnea C/O right groin discomfort following syncopal fall on 11-04-17, followed by Dr Bell H/O cervical fusion by Dr. Osborne Quit smoking approx 25 years ago H/O mastoid surgery Family h/o CAD (father CT at age 79) Okay for discharge from cardiology standpoint Clinical Quality Measures DVT/VTE Risk/Contraindication: Risk Factor Score Per Nursin RFS Level Per Nursing on Admit: 3=High NAVIN ARIZMENDI MD Nov 08, 2017 07:49
[2017-11-08 08:00] VITALS: BP 129/68
--- NOTE | 2017-11-08 09:00 | Diagnostic Imaging Report ---
INDICATION: Pneumonia and COPD. Comparison is made with prior examination 11/06/2017. FINDINGS: Heart size is normal. Mediastinum is unremarkable. There is some patchy right basilar subsegmental atelectasis and/or pneumonitis. There is no pleural effusion or pneumothorax. IMPRESSION: Patchy right basilar subsegment atelectasis and/or pneumonitis. Dictated by: Dictated on workstation # [id number]
[2017-11-08] MEDS ORDERED: AMOX500T2 PO (11:24)
[2017-11-08] MEDS ORDERED: AMOX-358 PO (11:31)
[2017-11-08] MEDS ORDERED: ASPI-586 PO (11:34)
[2017-11-08 12:00] VITALS: BP 129/62
[2017-11-08 16:00] VITALS: BP 141/67
[2017-11-08] MEDS: AZITHROMYCIN INJECTION 500 MG in NS (IVPB) 250 ML IV SCH (16:20)
[2017-11-08 20:00] VITALS: BP 146/74
[2017-11-08] MEDS: LOVASTATIN 20 MG PO SCH (21:18)
[2017-11-09 00:07] VITALS: BP 147/75
[2017-11-09] MEDS: RT-ALBUTEROL SULF 2.5 MG/3 ML PRE-MIX VIAL INH SCH (02:11)
[2017-11-09 06:25] LABS: BASOPHILS % (AUTO) 1 % (0-10); EOSINOPHILS # (AUTO) 0.2 10^3/uL (0.0-0.3); EOSINOPHILS % (AUTO) 5 % (0-10); HEMATOCRIT 40 % (40-54); HEMOGLOBIN 13.3 G/DL (13.3-17.7); LYMPHOCYTES # (AUTO) 1.6 X 10^3 (1.0-4.0); LYMPHOCYTES % (AUTO) 37 % (12-44); MEAN CORPUSCULAR HEMOGLOBIN 31 PG (25-34); MEAN CORPUSCULAR HGB CONC 33 G/DL (32-36); MEAN CORPUSCULAR VOLUME 93 FL (80-99); MEAN PLATELET VOLUME 10.5 FL (7.4-10.4); MONOCYTES # (AUTO) 0.6 X 10^3 (0.0-1.0); MONOCYTES % (AUTO) 14 % (0-12); NEUTROPHILS # (AUTO) 1.8 X 10^3 (1.8-7.8); NEUTROPHILS % (AUTO) 43 % (42-75); PLATELET COUNT 183 10^3/uL (130-400); RED BLOOD COUNT 4.28 10^6/uL (4.35-5.85); RED CELL DISTRIBUTION WIDTH 13.4 % (10.0-14.5); WHITE BLOOD COUNT 4.2 10^3/uL (4.3-11.0)
--- NOTE | 2017-11-09 07:02 | Progress Note (SOAP) ---
Subjective Time Seen by Provider: 07:00 Subjective/Events-last exam Patient feeling better and doing better. White blood cell count within normal limits. Not running any temperature. Sputum color better. Breathing better. Waiting on chest x-ray report. Planning on discharging today. Lung sounding better Objective Exam Vital Signs Date Time Temp Pulse Resp B/P (MAP) Pulse Ox O2 Delivery O2 Flow Rate FiO2 11/09/17 02:12 98 Room Air 11/09/17 00:07 97.8 78 17 147/75 (99) 98 Room Air 11/08/17 20:20 Room Air 11/08/17 20:00 97.4 89 18 146/74 (98) 95 Room Air 11/08/17 18:09 96 Room Air 11/08/17 16:00 97.7 86 16 141/67 (91) 98 Room Air 11/08/17 14:27 96 Room Air 11/08/17 12:00 97.1 95 20 129/62 (84) 94 Room Air 11/08/17 09:00 Room Air 11/08/17 08:00 97.5 95 20 129/68 (88) 97 Room Air 11/08/17 07:22 93 Room Air 11/08/17 07:00 93 I & O 11/09/17 07:00 Intake Total 2610 ml Output Total 1250 ml Balance 1360 ml Capillary Refill : Less Than 3 SecondsLess Than 3 Seconds General Appearance: No Apparent Distress, WD/WN HEENT: Normal ENT Inspection Neck: Full Range of Motion, Normal Inspection Respiratory: Normal Breath Sounds, No Accessory Muscle Use, No Respiratory Distress, Decreased Breath Sounds Cardiovascular: Regular Rate, Rhythm, No Murmur Gastrointestinal: non tender, soft Results Lab Laboratory Tests 11/09/17 05:49 Laboratory Tests 11/09/17 05:49: White Blood Count 4.2L, Red Blood Count 4.28L, Hemoglobin 13.3, Hematocrit 40, Mean Corpuscular Volume 93, Mean Corpuscular Hemoglobin 31, Mean Corpuscular Hemoglobin Concent 33, Red Cell Distribution Width 13.4, Platelet Count 183, Mean Platelet Volume 10.5H, Neutrophils (%) (Auto) 43, Lymphocytes (%) (Auto) 37 , Monocytes (%) (Auto) 14H, Eosinophils (%) (Auto) 5, Basophils (%) (Auto) 1, Neutrophils # (Auto) 1.8, Lymphocytes # (Auto) 1.6, Monocytes # (Auto) 0.6, Eosinophils # (Auto) 0.2, Basophils # (Auto) 0.0 Microbiology 11/04/17 Blood Culture - Preliminary, Resulted No growth 11/06/17 Throat Culture - Final, Complete No Beta Strep isolated 11/07/17 Urine Culture - Preliminary, Resulted NO GROWTH Assessment/Plan Assessment/Plan Assess & Plan/Chief Complaint Syncope. UTI due to Escherichia coli. Hypertension. COPD. Hyperlipidemia. Patient willing to have cardiology to procedure. . . Syncope. UTI. Hypertension. COPD. Hyperlipidemia. Pneumonia. . 11/08/17. Syncope resolved. UTI on antibiotic hypertension better. COPD. Hyperlipidemia. Pneumonia. Lungs are sounding better. Waiting a chest x-ray report. Plan to discharge today. Nurse to call at 11 a.m. . 11/09/17. Syncope. UTI resolved. COPD. Pneumonia. Hyperlipidemia. Lungs sounding better. Waiting for chest x-ray report Clinical Quality Measures Admission Status Admission Dx syncope.. Tachycardia. uTI. Chest tightness. Carotid stenosis COPD. Degenerative arthritis DVT/VTE Risk/Contraindication: Risk Factor Score Per Nursin RFS Level Per Nursing on Admit: 3=High JOSE EAST DO Nov 09, 2017 07:02
[2017-11-09] MEDS ORDERED: CEFD300C3 PO (07:30)
[2017-11-09] MEDS ORDERED: AZIT250T PO (07:30)
--- NOTE | 2017-11-09 07:46 | Diagnostic Imaging Report ---
Indication: Pneumonia. Comparison: 11/08/2017 Findings: Frontal and lateral radiographic views the chest were obtained and continues to show minimal patchy airspace opacities within the right base. Left lung remains relatively clear. There is no large effusion or pneumothorax on either side. Cardiac silhouette and pulmonary vasculature are within normal limits. Bony structures show no gross acute abnormality. Impression: 1. Slight residual patchy infiltrate type appearing opacities within the right lung base. Dictated by: Dictated on workstation # [id number]
[2017-11-09 08:00] VITALS: BP 144/74
[2017-11-09] MEDS: ENOXAPARIN 40 MG/0.4 ML (LOVENOX) SYR SC SCH (08:08)
[2017-11-09] MEDS: BENZONATATE 100 MG (TESSALON) CAPSULE PO SCH (08:09)
[2017-11-09] MEDS: lisINopril 10 MG (PRINIVIL) TABLET PO SCH (08:09)
[2017-11-09] MEDS: CLOPIDOGREL 75 MG (PLAVIX) TABLET PO SCH (08:09)
[2017-11-09] MEDS: LORATADINE (CLARITIN) 10 MG TAB PO SCH (08:09)
[2017-11-09] MEDS: ASPIRIN 81 MG CHEW (CHILDREN'S ASA) PO SCH (08:09)
[2017-11-09] MEDS: AZITHROMYCIN INJECTION 500 MG in NS (IVPB) 250 ML IV SCH (08:10)
[2017-11-09] MEDS: cefTRIAXone INJECTION 1,000 MG in NS (IVPB) 100 ML IV SCH (08:10)
[2017-11-09 10:15] VITALS: BP 144/74
[2017-11-10] MEDS ORDERED: AZITHROMYCIN 250 MG TAB (ZITHROMAX) PO SCH (09:00)
--- NOTE | 2017-11-12 07:18 | Discharge Summary ---
Diagnosis/Chief Complaint Date of Admission Nov 07, 2017 at 09:00 Date of Discharge Nov 09, 2017 at 10:15 Discharge Date: Nov 09, 2017 Discharge Time: 07:15 Discharge Diagnosis Syncope. Tachycardia. Chest tightness. UTI. Pneumonia. Hypertension. Hyperlipidemia. UTI due to Escherichia coli. Stenosis of carotid artery Reason Hospital Visit patient came out to the emergency room by car. Son cutting his hair and patient passed out. Patient had chest tightness that lasted several minutes. Patient complains of pain in the right groin and was found to the right knee this morning. patient sees Dr. Cosme for his carotid stenosis. Surgeries appendectomy, left arm, mastoid, tonsils, cervical fusion, appendectomy, and 2 cataracts and implants Discharge Summary Procedures Implantable loop recorder Consultations Cardiology Discharge Physical Examination Allergies: Coded Allergies: No Known Drug Allergies (Unverified , 11/04/17) Vitals & I&Os Vital Signs Date Time Temp Pulse Resp B/P (MAP) Pulse Ox O2 Delivery O2 Flow Rate FiO2 11/09/17 10:15 84 18 144/74 95 Room Air 11/09/17 08:00 97.2 Hospital Course Patient in hospital did better. No syncope Labs (last 24 hrs) Laboratory Tests 11/04/17 15:52: D-Dimer 0.30 11/04/17 15:55: White Blood Count 8.5, Red Blood Count 4.66, Hemoglobin 14.8, Hematocrit 43, Mean Corpuscular Volume 91, Mean Corpuscular Hemoglobin 32, Mean Corpuscular Hemoglobin Concent 35, Red Cell Distribution Width 13.6, Platelet Count 193, Mean Platelet Volume 11.2H, Neutrophils (%) (Auto) 69, Lymphocytes (%) (Auto) 15 , Monocytes (%) (Auto) 15H, Eosinophils (%) (Auto) 1, Basophils (%) (Auto) 0, Neutrophils # (Auto) 5.8, Lymphocytes # (Auto) 1.3, Monocytes # (Auto) 1.3H, Eosinophils # (Auto) 0.0, Basophils # (Auto) 0.0, Sodium Level 132L, Potassium Level 5.5H, Chloride Level 100, Carbon Dioxide Level 22, Anion Gap 10, Blood Urea Nitrogen 13, Creatinine 1.11, Estimat Glomerular Filtration Rate > 60, BUN/ Creatinine Ratio 12, Glucose Level 170H, Calcium Level 8.8, Magnesium Level 2.7H , Total Bilirubin 0.5, Aspartate Amino Transf (AST/SGOT) 33, Alanine Aminotransferase (ALT/SGPT) 23, Alkaline Phosphatase 87, Total Creatine Kinase 129, Myoglobin 54.8, Troponin I < 0.30, C-Reactive Protein High Sensitivity 0.82H, Total Protein 7.6, Albumin 4.3, TSH [place] Testing 2.56, Serum Alcohol < 10 11/04/17 16:55: Urine Color YELLOW, Urine Clarity CLEAR, Urine pH 6.5, Urine Specific [place] 1.015L, Urine Protein NEGATIVE, Urine Glucose (UA) NEGATIVE, Urine Ketones NEGATIVE, Urine Nitrite NEGATIVE, Urine Bilirubin NEGATIVE, Urine Urobilinogen NORMAL, Urine Leukocyte Esterase 2+H, Urine RBC (Auto) 1+H, Urine RBC 5-10H, Urine WBC 10-25H, Urine Squamous Epithelial Cells 2-5, Urine Crystals NONE, Urine Bacteria TRACE, Urine Casts PRESENT, Urine Hyaline Casts RARE, Urine Mucus NEGATIVE, Urine Culture Indicated YES, Urine Opiates Screen NEGATIVE, Urine Oxycodone Screen NEGATIVE, Urine Methadone Screen NEGATIVE, Urine Propoxyphene Screen NEGATIVE, Urine Barbiturates Screen NEGATIVE, Ur Tricyclic Antidepressants Screen NEGATIVE, Urine Phencyclidine Screen NEGATIVE, Urine Amphetamines Screen NEGATIVE, Urine Methamphetamines Screen NEGATIVE, Urine Benzodiazepines Screen NEGATIVE, Urine Cocaine Screen NEGATIVE, Urine Cannabinoids Screen NEGATIVE 11/04/17 18:40: Lactic Acid Level 0.82 11/04/17 21:50: Total Creatine Kinase 115, Troponin I < 0.30 11/05/17 05:28: White Blood Count 7.9, Red Blood Count 4.34L, Hemoglobin 13.6, Hematocrit 40, Mean Corpuscular Volume 93, Mean Corpuscular Hemoglobin 31, Mean Corpuscular Hemoglobin Concent 34, Red Cell Distribution Width 13.5, Platelet Count 177, Mean Platelet Volume 11.0H, Neutrophils (%) (Auto) 73, Lymphocytes (%) (Auto) 11L, Monocytes (%) (Auto) 16H, Eosinophils (%) (Auto) 0, Basophils (%) (Auto) 0 , Neutrophils # (Auto) 5.8, Lymphocytes # (Auto) 0.9L, Monocytes # (Auto) 1.2H, Eosinophils # (Auto) 0.0, Basophils # (Auto) 0.0, Sodium Level 136, Potassium Level 4.3, Chloride Level 105, Carbon Dioxide Level 23, Anion Gap 8, Blood Urea Nitrogen 12, Creatinine 0.87, Estimat Glomerular Filtration Rate > 60, BUN/ Creatinine Ratio 14, Glucose Level 95, Calcium Level 8.5, Triglycerides Level 117, Cholesterol Level 150, LDL Cholesterol Direct 99, VLDL Cholesterol 23, HDL Cholesterol 35L 11/07/17 06:29: White Blood Count 5.4, Red Blood Count 4.28L, Hemoglobin 13.4, Hematocrit 40, Mean Corpuscular Volume 93, Mean Corpuscular Hemoglobin 31, Mean Corpuscular Hemoglobin Concent 34, Red Cell Distribution Width 13.3, Platelet Count 176, Mean Platelet Volume 10.5H, Sodium Level 140, Potassium Level 4.2, Chloride Level 105, Carbon Dioxide Level 27, Anion Gap 8, Blood Urea Nitrogen 11, Creatinine 0.87, Estimat Glomerular Filtration Rate > 60, BUN/Creatinine Ratio 13, Glucose Level 113H, Calcium Level 9.0 11/07/17 12:00: Urine Color YELLOW, Urine Clarity CLEAR, Urine pH 6.5, Urine Specific [place] 1.015L, Urine Protein NEGATIVE, Urine Glucose (UA) NEGATIVE, Urine Ketones NEGATIVE, Urine Nitrite NEGATIVE, Urine Bilirubin NEGATIVE, Urine Urobilinogen NORMAL, Urine Leukocyte Esterase 2+H, Urine RBC (Auto) NEGATIVE, Urine RBC NONE , Urine WBC 5-10H, Urine Squamous Epithelial Cells 2-5, Urine Crystals NONE, Urine Bacteria TRACE, Urine Casts NONE, Urine Mucus NEGATIVE, Urine Culture Indicated YES 11/08/17 06:33: White Blood Count 4.6, Red Blood Count 4.27L, Hemoglobin 13.5, Hematocrit 40, Mean Corpuscular Volume 93, Mean Corpuscular Hemoglobin 32, Mean Corpuscular Hemoglobin Concent 34, Red Cell Distribution Width 13.4, Platelet Count 171, Mean Platelet Volume 10.6H, Sodium Level 139, Potassium Level 4.2, Chloride Level 104, Carbon Dioxide Level 23, Anion Gap 12, Blood Urea Nitrogen 11, Creatinine 0.84, Estimat Glomerular Filtration Rate > 60, BUN/Creatinine Ratio 13, Glucose Level 100, Calcium Level 9.1 11/09/17 05:49: White Blood Count 4.2L, Red Blood Count 4.28L, Hemoglobin 13.3, Hematocrit 40, Mean Corpuscular Volume 93, Mean Corpuscular Hemoglobin 31, Mean Corpuscular Hemoglobin Concent 33, Red Cell Distribution Width 13.4, Platelet Count 183, Mean Platelet Volume 10.5H, Neutrophils (%) (Auto) 43, Lymphocytes (%) (Auto) 37 , Monocytes (%) (Auto) 14H, Eosinophils (%) (Auto) 5, Basophils (%) (Auto) 1, Neutrophils # (Auto) 1.8, Lymphocytes # (Auto) 1.6, Monocytes # (Auto) 0.6, Eosinophils # (Auto) 0.2, Basophils # (Auto) 0.0 Microbiology 11/04/17 Blood Culture - Final, Complete No growth 11/06/17 Throat Culture - Final, Complete No Beta Strep isolated 11/07/17 Urine Culture - Final, Complete NO GROWTH Laboratory Tests 11/04/17 15:55 11/05/17 05:28 11/07/17 06:29 11/08/17 06:33 11/09/17 05:49 Pending Labs Microbiology Date/Time Source Procedure Growth Status 11/04/17 18:47 Peripheral Rt Ac Blood Culture - Final No growth Complete 11/04/17 18:40 Peripheral Rt Ac Blood Culture - Final No growth Complete 11/06/17 14:00 Throat Throat Culture - Final No Beta Strep isolated Complete 11/06/17 13:00 Sputum Expectorated Gram Stain - Final Complete 11/06/17 13:00 Sputum Expectorated Sputum Culture - Final Usual/normal melissa isolated. Complete 11/07/17 12:00 Urine Clean Catch Urine Culture - Final NO GROWTH Complete 11/04/17 16:55 Urine Clean Catch Urine Culture - Final Escherichia coli See Comments Complete Laboratory Tests 11/04/17 15:52: D-Dimer 0.30 11/04/17 15:55: White Blood Count 8.5, Red Blood Count 4.66, Hemoglobin 14.8, Hematocrit 43, Mean Corpuscular Volume 91, Mean Corpuscular Hemoglobin 32, Mean Corpuscular Hemoglobin Concent 35, Red Cell Distribution Width 13.6, Platelet Count 193, Mean Platelet Volume 11.2, Neutrophils (%) (Auto) 69, Lymphocytes (%) (Auto) 15 , Monocytes (%) (Auto) 15, Eosinophils (%) (Auto) 1, Basophils (%) (Auto) 0, Neutrophils # (Auto) 5.8, Lymphocytes # (Auto) 1.3, Monocytes # (Auto) 1.3, Eosinophils # (Auto) 0.0, Basophils # (Auto) 0.0, Sodium Level 132, Potassium Level 5.5, Chloride Level 100, Carbon Dioxide Level 22, Anion Gap 10, Blood Urea Nitrogen 13, Creatinine 1.11, Estimat Glomerular Filtration Rate > 60, BUN/ Creatinine Ratio 12, Glucose Level 170, Calcium Level 8.8, Magnesium Level 2.7, Total Bilirubin 0.5, Aspartate Amino Transf (AST/SGOT) 33, Alanine Aminotransferase (ALT/SGPT) 23, Alkaline Phosphatase 87, Total Creatine Kinase 129, Myoglobin 54.8, Troponin I < 0.30, C-Reactive Protein High Sensitivity 0.82 , Total Protein 7.6, Albumin 4.3, TSH [place] Testing 2.56, Serum Alcohol < 10 11/04/17 16:55: Urine Color YELLOW, Urine Clarity CLEAR, Urine pH 6.5, Urine Specific [place] 1.015, Urine Protein NEGATIVE, Urine Glucose (UA) NEGATIVE, Urine Ketones NEGATIVE, Urine Nitrite NEGATIVE, Urine Bilirubin NEGATIVE, Urine Urobilinogen NORMAL, Urine Leukocyte Esterase 2+, Urine RBC (Auto) 1+, Urine RBC 5-10, Urine WBC 10-25, Urine Squamous Epithelial Cells 2-5, Urine Crystals NONE, Urine Bacteria TRACE, Urine Casts PRESENT, Urine Hyaline Casts RARE, Urine Mucus NEGATIVE, Urine Culture Indicated YES, Urine Opiates Screen NEGATIVE, Urine Oxycodone Screen NEGATIVE, Urine Methadone Screen NEGATIVE, Urine Propoxyphene Screen NEGATIVE, Urine Barbiturates Screen NEGATIVE, Ur Tricyclic Antidepressants Screen NEGATIVE, Urine Phencyclidine Screen NEGATIVE, Urine Amphetamines Screen NEGATIVE, Urine Methamphetamines Screen NEGATIVE, Urine Benzodiazepines Screen NEGATIVE, Urine Cocaine Screen NEGATIVE, Urine Cannabinoids Screen NEGATIVE 11/04/17 18:40: Lactic Acid Level 0.82 11/04/17 21:50: Total Creatine Kinase 115, Troponin I < 0.30 11/05/17 05:28: White Blood Count 7.9, Red Blood Count 4.34, Hemoglobin 13.6, Hematocrit 40, Mean Corpuscular Volume 93, Mean Corpuscular Hemoglobin 31, Mean Corpuscular Hemoglobin Concent 34, Red Cell Distribution Width 13.5, Platelet Count 177, Mean Platelet Volume 11.0, Neutrophils (%) (Auto) 73, Lymphocytes (%) (Auto) 11 , Monocytes (%) (Auto) 16, Eosinophils (%) (Auto) 0, Basophils (%) (Auto) 0, Neutrophils # (Auto) 5.8, Lymphocytes # (Auto) 0.9, Monocytes # (Auto) 1.2, Eosinophils # (Auto) 0.0, Basophils # (Auto) 0.0, Sodium Level 136, Potassium Level 4.3, Chloride Level 105, Carbon Dioxide Level 23, Anion Gap 8, Blood Urea Nitrogen 12, Creatinine 0.87, Estimat Glomerular Filtration Rate > 60, BUN/ Creatinine Ratio 14, Glucose Level 95, Calcium Level 8.5, Triglycerides Level 117, Cholesterol Level 150, LDL Cholesterol Direct 99, VLDL Cholesterol 23, HDL Cholesterol 35 11/07/17 06:29: White Blood Count 5.4, Red Blood Count 4.28, Hemoglobin 13.4, Hematocrit 40, Mean Corpuscular Volume 93, Mean Corpuscular Hemoglobin 31, Mean Corpuscular Hemoglobin Concent 34, Red Cell Distribution Width 13.3, Platelet Count 176, Mean Platelet Volume 10.5, Sodium Level 140, Potassium Level 4.2, Chloride Level 105, Carbon Dioxide Level 27, Anion Gap 8, Blood Urea Nitrogen 11, Creatinine 0.87, Estimat Glomerular Filtration Rate > 60, BUN/Creatinine Ratio 13, Glucose Level 113, Calcium Level 9.0 11/07/17 12:00: Urine Color YELLOW, Urine Clarity CLEAR, Urine pH 6.5, Urine Specific [place] 1.015, Urine Protein NEGATIVE, Urine Glucose (UA) NEGATIVE, Urine Ketones NEGATIVE, Urine Nitrite NEGATIVE, Urine Bilirubin NEGATIVE, Urine Urobilinogen NORMAL, Urine Leukocyte Esterase 2+, Urine RBC (Auto) NEGATIVE, Urine RBC NONE, Urine WBC 5-10, Urine Squamous Epithelial Cells 2-5, Urine Crystals NONE, Urine Bacteria TRACE, Urine Casts NONE, Urine Mucus NEGATIVE, Urine Culture Indicated YES 11/08/17 06:33: White Blood Count 4.6, Red Blood Count 4.27, Hemoglobin 13.5, Hematocrit 40, Mean Corpuscular Volume 93, Mean Corpuscular Hemoglobin 32, Mean Corpuscular Hemoglobin Concent 34, Red Cell Distribution Width 13.4, Platelet Count 171, Mean Platelet Volume 10.6, Sodium Level 139, Potassium Level 4.2, Chloride Level 104, Carbon Dioxide Level 23, Anion Gap 12, Blood Urea Nitrogen 11, Creatinine 0.84, Estimat Glomerular Filtration Rate > 60, BUN/Creatinine Ratio 13, Glucose Level 100, Calcium Level 9.1 11/09/17 05:49: White Blood Count 4.2, Red Blood Count 4.28, Hemoglobin 13.3, Hematocrit 40, Mean Corpuscular Volume 93, Mean Corpuscular Hemoglobin 31, Mean Corpuscular Hemoglobin Concent 33, Red Cell Distribution Width 13.4, Platelet Count 183, Mean Platelet Volume 10.5, Neutrophils (%) (Auto) 43, Lymphocytes (%) (Auto) 37 , Monocytes (%) (Auto) 14, Eosinophils (%) (Auto) 5, Basophils (%) (Auto) 1, Neutrophils # (Auto) 1.8, Lymphocytes # (Auto) 1.6, Monocytes # (Auto) 0.6, Eosinophils # (Auto) 0.2, Basophils # (Auto) 0.0 Radiology Reviewed Chest x-ray pneumonia. Chest x-ray on discharge residual pneumonia Discharge Home Medications: Active Scripts Active Cefdinir 300 Mg Capsule 300 Mg PO BID 4 Days Zithromax (Azithromycin) 250 Mg Tablet 250 Mg PO DAILY 3 Days Aspir 81 (Aspirin) 81 Mg Tablet.dr 81 Mg PO DAILY 30 Days Metoprolol Succinate 25 Mg Tab.er.24h 25 Mg PO DAILY Clopidogrel (Clopidogrel Bisulfate) 75 Mg Tablet 75 Mg PO DAILY Reported Ventolin Hfa (Albuterol Sulfate) 1 Puff Puff 1 Puff IH Q4H PRN 1 PUFF = 90 MCG Hydrocodone-Acetamin 5-325 mg (Hydrocodone/Acetaminophen) 1 Each Tablet 1 Each PO DAILY PRN Lovastatin 20 Mg Tablet 20 Mg PO DAILY Lisinopril 10 Mg Tablet 10 Mg PO DAILY Alprazolam 0.25 Mg Tablet 0.25 Mg PO Q12HR PRN Instructions to patient/family Please see electronic discharge instructions given to patient. Clinical Quality Measures DVT/VTE Risk/Contraindication: Risk Factor Score Per Nursin RFS Level Per Nursing on Admit: 3=High JOSE EAST DO Nov 12, 2017 07:18
== END 2017-11-09 10:15 | disposition home or self-care (01) | DRG 982 ==
LOC: EDUNIT# 15:49 → ER 15:50 → UNDOADMOB 18:33 → 4TH 18:33 → OBSVTOIN 11-07 09:00 → INTOOBSV 11-07 09:00 → UNDODISIN 11-09 10:15
PROVIDERS: ADMIT Internal Medicine; ATTEND Internal Medicine
PROC: 0JH632Z Insertion of Monitoring Device into Chest Subcutaneous Tissue and Fascia, Percutaneous Approach (ICD-10-PCS; principal; 2017-11-05)
DX: J18.9 Pneumonia, unspecified organism (principal); J44.0 Chronic obstructive pulmonary disease with (acute) lower respiratory infection; R55 Syncope and collapse; R00.2 Palpitations; I10 Essential (primary) hypertension; E78.00 Pure hypercholesterolemia, unspecified; N39.0 Urinary tract infection, site not specified; B96.20 Unspecified Escherichia coli [E. coli] as the cause of diseases classified elsewhere; I65.23 Occlusion and stenosis of bilateral carotid arteries; R07.89 Other chest pain; E87.5 Hyperkalemia; H91.90 Unspecified hearing loss, unspecified ear; G47.30 Sleep apnea, unspecified; R10.31 Right lower quadrant pain; M19.91 Primary osteoarthritis, unspecified site; Z87.891 Personal history of nicotine dependence; Z98.1 Arthrodesis status; Z82.49 Family history of ischemic heart disease and other diseases of the circulatory system
CPT/HCPCS: 33282; 36415; 71045; 71046; 78452; 80048; 80053; 80061; 80306; 80320; 81000; 82550; 83605; 83735; 83874; 84443; 84484; 85025; 85027; 85379; 86141; 87040; 87070; 87077; 87088; 87186; 87205; 93005; 93017; 93041; 93306; 93880; 94640; 94664; 94760; 96361; 96374; G0378

== ENCOUNTER → 2017-11-13 | Outpatient (CLI) | payer MEDICARE, OTHER ==
[~2017-11-13] MED LIST: ALBU18HF2; ALPR0.254; ALPR0.254 PO; AMOX-358 PO; AMOX500T2 PO; ASPI-586 PO; AZIT250T PO; CEFD300C3 PO; CLOP75TA28 PO; HYDR-3812 PO; LISI10TA2; LISI10TA2 PO; LOVA20TA2; LOVA20TA2 PO; METO-387 PO; RT-ALBUINH IH
--- NOTE | 2017-11-13 08:55 | Diagnostic Imaging Report ---
INDICATION: Pneumonia. COMPARISON: 11/09/2017. FINDINGS: Two views of the chest are obtained. Heart size is normal. The pulmonary vessels appear unremarkable. There is no pneumothorax, mediastinal widening or pleural fluid demonstrated. Minimal patchy airspace disease at the right lung base is minimally improved. There is also a subtle 9 mm nodular area of opacity over the right upper lobe, which is more prominent than the prior study and may represent some additional infiltrate, however followup is recommended. Left lung remains clear. Postoperative changes are again seen in the right shoulder. There are degenerative changes in the spine. IMPRESSION: 1. Improved but minimally persistent airspace disease at the right lung base. 2. A 9 mm nodular opacity right upper lobe possibly additional infiltrate but nonspecific. Short-term followup study is recommended to document resolution. If findings do not resolve, CT scan may be necessary. 3. No new abnormality is seen when compared to the prior study. Dictated by: Dictated on workstation # [id number]
== END ==
LOC: RAD 08:33
PROVIDERS: ATTEND Family Medicine
DX: J18.9 Pneumonia, unspecified organism (principal); R91.1 Solitary pulmonary nodule
CPT/HCPCS: 71046

== ENCOUNTER → 2017-11-21 | Outpatient (CLI) | payer MEDICARE, OTHER ==
--- NOTE | 2017-11-21 08:20 | Diagnostic Imaging Report ---
Indication: Productive cough and chest wall tightness. Time of exam 7:53 AM Correlation is made with prior study from 11/13/2017. The heart size is stable. Monitoring device overlies the left hilum. Lungs appear to be clear. No infiltrates are seen. There is no effusion. Pulmonary vascularity is normal. No pneumothorax is seen. Postop changes in the right shoulder are noted. IMPRESSION: Stable chest. No acute cardiopulmonary process is detected. Dictated by: Dictated on workstation # [id number]
== END ==
LOC: RAD 07:19
PROVIDERS: ATTEND Family Medicine
DX: J18.9 Pneumonia, unspecified organism (principal); R91.1 Solitary pulmonary nodule
CPT/HCPCS: 71046

== ENCOUNTER → 2019-04-30 | Outpatient (CLI) | payer MEDICARE, OTHER ==
[~2019-04-30] MED LIST changes: +HOLD METFORMIN - RECEIVED CONTRAST 20 ML VIAL IV SCH; +IOHEXOL 350 MG/ML 100 ML (OMNIPAQUE 350) VIAL IV ONE; +NS 100 ML (IVPB) BAG IV ONE
[2019-04-30 10:03] LABS: BUN/CREATININE RATIO 15; CREATININE SERUM 1.02 MG/DL (0.60-1.30); GFR ESTIMATED > 60
[2019-04-30 10:36] LABS: ABG BASE EXCESS 0.9 MMOL/L (-2.5-2.5); ABG OXYGEN SATURATION 97 % (94-100); ABG PCO2 40 MMHG (35-45); ABG PH 7.41 (7.37-7.43); ABG PO2 92 MMHG (79-93); ABG TCO2 26.2 MMOL/L (21.0-31.0); ALLENS TEST YES-POS
[2019-04-30 10:37] LABS: INSPIRED O2 ROOM AIR; PATIENT TEMP 36.9; VENTILATOR NO
--- NOTE | 2019-04-30 11:23 | Diagnostic Imaging Report ---
PROCEDURE: CT chest with contrast only. TECHNIQUE: Multiple contiguous axial images were obtained through the chest after administration of intravenous contrast. Auto Exposure Controls were utilized during the CT exam to meet ALARA standards for radiation dose reduction. INDICATION: Dyspnea and allergic rhinitis as well as cough and COPD. COMPARISON: No prior chest CT studies are available for comparison. FINDINGS: No axillary lymphadenopathy is identified. Small lymph nodes in the mediastinum and isaak are noted. No pathologically enlarged nodes are seen. No pericardial or pleural fluid is identified. There are some interstitial changes in both lungs, likely chronic. No parenchymal mass or infiltrate is identified. The central airways appear to be patent. Upper abdomen is unremarkable. IMPRESSION: Essentially unremarkable CT of the chest apart from mild interstitial changes. No other significant abnormality is seen. Dictated by: Dictated on workstation # [id number]
== END ==
LOC: RAD 09:28
PROVIDERS: ATTEND Nurse Practitioner Family
DX: J44.9 Chronic obstructive pulmonary disease, unspecified (principal); J30.9 Allergic rhinitis, unspecified; G47.50 Parasomnia, unspecified; J98.4 Other disorders of lung; Z87.891 Personal history of nicotine dependence
CPT/HCPCS: 36415; 36600; 71260; 82565; 82805; 84520

== ENCOUNTER 2019-05-03 19:46 | Outpatient (CLI) | payer MEDICARE, OTHER ==
[~2019-05-03 19:46] MED LIST changes: -HOLD METFORMIN - RECEIVED CONTRAST 20 ML VIAL IV SCH; -IOHEXOL 350 MG/ML 100 ML (OMNIPAQUE 350) VIAL IV ONE; -NS 100 ML (IVPB) BAG IV ONE
== END 2019-05-04 04:50 | disposition home or self-care (01) ==
LOC: SLEEP 19:46
PROVIDERS: ATTEND Nurse Practitioner Family
DX: G47.50 Parasomnia, unspecified (principal); J30.9 Allergic rhinitis, unspecified; J44.9 Chronic obstructive pulmonary disease, unspecified; Z87.891 Personal history of nicotine dependence
CPT/HCPCS: 95811

== ENCOUNTER → 2019-05-14 | Outpatient (CLI) | payer MEDICARE, OTHER ==
[~2019-05-14] MED LIST changes: +RT-ALBUTEROL SULF 2.5 MG/3 ML PRE-MIX VIAL INH ONE
== END ==
LOC: RT 09:59
PROVIDERS: ATTEND Nurse Practitioner Family
DX: J30.9 Allergic rhinitis, unspecified (principal); J44.9 Chronic obstructive pulmonary disease, unspecified; G47.50 Parasomnia, unspecified; Z87.891 Personal history of nicotine dependence
CPT/HCPCS: 94060; 94726; 94729; 94761

== ENCOUNTER 2019-06-14 20:40 | Outpatient (CLI) | payer MEDICARE, OTHER ==
[~2019-06-14 20:40] MED LIST changes: -RT-ALBUTEROL SULF 2.5 MG/3 ML PRE-MIX VIAL INH ONE
== END 2019-06-15 05:47 | disposition home or self-care (01) ==
LOC: SLEEP 20:40
PROVIDERS: ATTEND Nurse Practitioner Family
DX: G47.33 Obstructive sleep apnea (adult) (pediatric) (principal); G47.50 Parasomnia, unspecified; J30.9 Allergic rhinitis, unspecified; J44.9 Chronic obstructive pulmonary disease, unspecified; Z87.891 Personal history of nicotine dependence
CPT/HCPCS: 95811

== ENCOUNTER → 2020-05-31 | Outpatient (CLI) | payer MEDICARE, OTHER ==
[~2020-05-31] MED LIST changes: +ACHD5005 PO; +ALPR.25T; +ALPR.25T PO; -ALPR0.254; -ALPR0.254 PO; +HOLD METFORMIN - RECEIVED CONTRAST 20 ML VIAL IV SCH; -HYDR-3812 PO; +IOHEXOL 350 MG/ML 100 ML (OMNIPAQUE 350) VIAL IV ONE; -METO-387 PO; +MTP25TSR PO; +NS 100 ML (IVPB) BAG IV ONE
[2020-05-31 07:48] LABS: CREATININE SERUM 1.06 MG/DL (0.60-1.30); GFR ESTIMATED > 60
[2020-05-31 07:49] LABS: BUN/CREATININE RATIO 16
--- NOTE | 2020-05-31 08:14 | Diagnostic Imaging Report ---
EXAMINATION: CT Chest with intravenous contrast. TECHNIQUE: Multiple contiguous axial images were obtained through the chest after the uneventful administration of intravenous contrast. All CT scans use one or more of the following dose optimizing techniques: automated exposure control, MA and/or KvP adjustment based on a patient size and exam type, or iterative reconstruction. HISTORY: Cough, COPD COMPARISON: 04/30/2019 FINDINGS: There is no edema or pneumonia. No pleural effusion. No pneumothorax. No suspicious nodules. There is a stable 3 mm juxtapleural lymph node associated with the left hemidiaphragm. There is a stable 4 mm diameter left upper lobe pulmonary nodule. There are mild peripheral reticulations in the right lung most pronounced at the apex and mid zone which appear unchanged from prior exam. There is no axillary or supraclavicular lymphadenopathy. There is no mediastinal lymphadenopathy. Heart size is normal. There are mild coronary artery calcifications. No pericardial effusion. Aorta is normal in caliber. Limited views of the upper abdomen are unremarkable. There are no suspicious osseus lesions. IMPRESSION: 1. Stable mild reticulations in the right upper and mid lung consistent with mild nonspecific fibrosis, potentially related to prior infection or smoking. Dictated by: Dictated on workstation # [id number]
== END ==
LOC: RAD 07:45
PROVIDERS: ATTEND Nurse Practitioner Family
DX: J43.8 Other emphysema (principal); J30.9 Allergic rhinitis, unspecified; R05 Cough
CPT/HCPCS: 36415; 71260; 82565; 84520

== ENCOUNTER → 2021-01-07 | Outpatient (CLI) | payer MEDICARE, OTHER ==
[~2021-01-07] MED LIST changes: +CATHETER FLUSH 10 ML SYR IV PRN; -HOLD METFORMIN - RECEIVED CONTRAST 20 ML VIAL IV SCH; -IOHEXOL 350 MG/ML 100 ML (OMNIPAQUE 350) VIAL IV ONE; -LISI10TA2; -LISI10TA2 PO; +LISI10TA25; +LISI10TA25 PO; -NS 100 ML (IVPB) BAG IV ONE; +REGADENOSON 0.4 MG/5 ML SYR (LEXISCAN) IV ONE
[2021-01-07 08:56] VITALS: BP 181/95
--- NOTE | 2021-01-10 13:52 | STRESS TEST ---
DATE OF SERVICE: 01/07/2021 RESTING AND POST REGADENOSON TECHNETIUM-99M TETROFOSMIN SPECT CT IMAGING ORDERING PHYSICIAN: Chasidy Fields APRN PRIMARY PHYSICIAN: Dr. Bell. CLINICAL DIAGNOSIS: Chest discomfort. Baseline images were carried out after injection of 10.37 mCi of technetium-99m Tetrofosmin. This was followed by 0.4 mg regadenoson and 30.4 mCi of technetium-99m Tetrofosmin for stress imaging. The electrocardiogram showed sinus rhythm at baseline. It did not change significantly with regadenoson infusion. The patient felt his heart does up somewhat after regadenoson infusion. This returned to baseline in a few minutes. Maximum heart rate recorded on the electrocardiogram was 95 beats per minute. Review of images at rest and following stress does not indicate any significant perfusion defects consistent with significant myocardial ischemia or infarction. Gated images show normal global left ventricular systolic function with normal regional wall motion. Left ventricular ejection fraction is calculated to be 54%. Left ventricular end-diastolic volume is 76 mL. TID is absent (1.05). CONCLUSIONS: 1. No evidence of any significant myocardial ischemia or infarction on this study. 2. Normal regional wall motion. 3. Normal global left ventricular systolic function with a calculated ejection fraction of 54%. Job ID: [id number] DocumentID: [id number] Dictated Date: 01/10/2021 08:51:14 Cartridge Assembler Date: 01/10/2021 13:52:15 Dictated By: FACUNDO TITUS MD, MA, FACP, FACC,
== END ==
LOC: CARD 07:21
PROVIDERS: ATTEND Nurse Practitioner Family
DX: R07.89 Other chest pain (principal)
CPT/HCPCS: 78452; 93017; A9502

== ENCOUNTER → 2021-01-10 | Outpatient (CLI) | payer MEDICARE, OTHER ==
[~2021-01-10] MED LIST changes: -CATHETER FLUSH 10 ML SYR IV PRN; -REGADENOSON 0.4 MG/5 ML SYR (LEXISCAN) IV ONE
== END ==
LOC: CARD 12:00
PROVIDERS: ATTEND Nurse Practitioner Family
DX: I51.7 Cardiomegaly (principal)
CPT/HCPCS: 93306

== ENCOUNTER → 2021-09-22 | Outpatient (CLI) | payer MEDICARE, OTHER ==
[~2021-09-22] VITALS: Ht 180 cm; Wt 100.0 kg
[~2021-09-22] MED LIST changes: +DIATRIZOATE 30% 300 ML (CYSTOGRAFIN) VIAL UR ONE; +LIDOCAINE UROJET 2% GEL 10 ML PKG TOP ONE
--- NOTE | 2021-09-22 16:13 | Diagnostic Imaging Report ---
Retrograde urethrogram. INDICATION: Stricture. COMPARISON: There are no prior studies available for comparison. Following aseptic preparation of the penis, Cystografin was infused into the penile urethra via a syringe. There were a few small rounded defects within the penile urethra. These are felt to be related to air bubbles. There was a focal area of narrowing of the anterior urethra approximately 2 cm from the tip of the penis. The stenosis in this area is estimated to be in the 80-90% range. The remainder of the anterior and the posterior urethra show no evidence for stricture formation. However, contrast could not be advanced into the membranous urethra or into the bladder. The patient tolerated the procedure well and was dismissed in good condition. Fluoroscopy time: 1.3 minutes. IMPRESSION: 1. There is a small focal high-grade stricture involving the anterior urethra. There is no other stricture formation identified. However, there was no extension of the contrast into the membranous urethra or the bladder. 2. These results were discussed with Dr. Yadav. Dictated by: Dictated on workstation # [id number]
== END ==
LOC: RAD 10:30
PROVIDERS: ATTEND Urology
DX: N35.919 Unspecified urethral stricture, male, unspecified site (principal)
CPT/HCPCS: 74450

== ENCOUNTER 2023-02-07 05:40 | Outpatient (CLI) | payer MEDICARE, OTHER ==
[~2023-02-07] VITALS: Ht 180 cm; Wt 99.0 kg
[~2023-02-07 05:40] MED LIST changes: -DIATRIZOATE 30% 300 ML (CYSTOGRAFIN) VIAL UR ONE; -LIDOCAINE UROJET 2% GEL 10 ML PKG TOP ONE
[2023-02-08] MEDS ORDERED: ACHD5005 PO (09:58)
[2023-02-08] MEDS ORDERED: ALPR0.5T7 PO (09:58)
[2023-02-08] MEDS ORDERED: METO50TA7 PO (09:58)
[2023-02-08] MEDS ORDERED: MTP100TCR PO (09:58)
[2023-02-08] MEDS ORDERED: BUDE10.7 IH (09:58)
[2023-02-08] MEDS ORDERED: RIVA20TA PO (09:58)
== END 2023-02-08 10:01 | disposition home or self-care (01) ==
LOC: PREOP 05:40
PROVIDERS: ATTEND Surgery
DX: Z01.818 Encounter for other preprocedural examination (principal)

== ENCOUNTER 2023-02-20 07:38 | Day surgery (SDC) | payer MEDICARE, OTHER ==
[~2023-02-20] VITALS: Ht 180.3 cm; Wt 99.0 kg
[~2023-02-20 07:38] MED LIST changes: +ALPR0.5T7 PO; +BUDE10.7 IH; +METO50TA7 PO; +MTP100TCR PO; +RIVA20TA PO
[2023-02-20] MEDS ORDERED: LACTATED RINGERS 1,000 ML IV STA (07:44)
[2023-02-20 07:58] VITALS: BP 169/89
[2023-02-20] MEDS ORDERED: PROPOFOL INJECTION 50 ML IV ONE (09:41)
[2023-02-20] MEDS ORDERED: proPOfol 200 MG/20 ML (DIPRIVAN) VIAL IV ONE (10:41)
[2023-02-20] MEDS ORDERED: PHENYLEPHRINE 100 MCG/ML 10 ML (ANESTHESIA) SYR ONE (10:59)
[2023-02-20 11:05] VITALS: BP 100/67
[2023-02-20 11:10] VITALS: BP 96/56
--- NOTE | 2023-02-20 11:11 | Discharge Inst-Simple/Standard ---
Discharge Inst-Standard Patient Instructions/Follow Up Plan of Care/Instructions/FU: Hold PLavix and Xarelto 5 days. Daisy 2 weeks. Activity as Tolerated: Yes Discharge Diet: Regular Diet NANCY NELSON DO Feb 20, 2023 11:11
--- NOTE | 2023-02-20 11:12 | Progress Note-Post Operative ---
Post-Operative Progess Note Surgeon (s)/[employer] Executive Director (s) Surgeon NANCY NELSON DO [employer] Executive Director: na Pre-Operative Diagnosis hx polyps Post-Operative Diagnosis colon polyps, diverticulosis Procedure & Operative Findings Date of Procedure 02/20/23 Procedure Performed/Findings colonoscopy c hot bx polypectomy x 2 and snare polypectomy x 17 Anesthesia Type per algebra tutor Estimated Blood Loss Estimated blood loss (mL): none Specimens/Packing Specimens Removed colon polyps NANCY NELSON DO Feb 20, 2023 11:12
[2023-02-20 11:24] VITALS: BP 130/68
[2023-02-20 11:35] VITALS: BP 130/68
--- NOTE | 2023-02-20 12:43 | Anesthesia-General Post-Op ---
MAC Patient Condition Mental Status/LOC: Same as Preop Cardiovascular: Satisfactory Nausea/Vomiting: Absent Respiratory: Satisfactory Pain: Controlled Complications: Absent Post Op Complications Complications None Follow Up Care/Instructions Patient Instructions None needed. Anesthesiology Discharge Order Discharge Order Patient is doing well, no complaints, stable vital signs, no apparent adverse anesthesia problems. No complications reported per nursing. DL MOJICA CRNA Feb 20, 2023 12:43
--- NOTE | 2023-02-20 15:35 | OPERATIVE REPORT ---
DATE OF SERVICE: 02/20/2023 PREOPERATIVE DIAGNOSIS: History of polyps. POSTOPERATIVE DIAGNOSES: Colon polyps, diverticulosis. PROCEDURE: Colonoscopy with hot biopsy polypectomy x2 and snare polypectomy x17. SURGEON: Kel Villa DO. ANESTHESIA: Per ONION TIER. ESTIMATED BLOOD LOSS: None. COMPLICATIONS: None. INDICATIONS: The patient is a 72-year-old male with history of polyps. He understands risks and benefits of procedure and wished to proceed. Consent was signed in chart. DESCRIPTION OF PROCEDURE: The patient was taken to endoscopy suite, placed in the left lateral recumbent position. Timeout was performed. Digital rectal exam was performed. No palpable polyps, masses or ulcerations. Scope was inserted in the rectum, advanced all the way to the cecum with minimal difficulty. Prep was adequate. At the appendiceal orifice, a small polyp was present. Hot biopsy polypectomy was performed. Scope was then continuously retracted back. No other polyp present in the cecum, which hot biopsy polypectomy was performed. Ascending colon, another small polyp, which hot biopsy polypectomy was performed. Four polyps were present, one which was a large polyp. Hot snare polypectomy was performed. The scope was continuously retracted back from the ascending colon, another polyp was present, which snare polypectomy was performed. Large polyp had to be suctioned withdrawn from the entire colon to be removed. The scope was reinserted all the way into the ascending colon at this location and slowly continued to be withdrawn. In the transverse colon, 7 polyps were present, which snare polypectomy was performed. The scope was continued to be retracted back. In the descending, total of 4 polyps were present, which snare polypectomy was performed. Also began noting a small amount of diverticulosis present. In the sigmoid colon, another small polyp was present, which snare polypectomy was performed. Scope was then continuously retracted back in the rectum where it was also retroflexed no other pathology. Scope was returned to its normal position, slowly withdrawn until completely removed. The patient tolerated the procedure well, no complications, taken to recovery room in stable condition. RECOMMENDATIONS: The patient will hold Plavix and Xarelto for 5 more days, decreased risk of bleeding due to the number of polyps. Would recommend repeat colonoscopy in one year for reevaluation. Any issues before that, be seen at that time. Follow up in 2 weeks for pathology. Job ID: [id number] DocumentID: [id number] Dictated Date: 02/20/2023 11:15:55 Spreader Box Operator Date: 02/20/2023 15:33:00 Dictated By: DO LOUIS GARDNER
== END 2023-02-20 11:43 | disposition home or self-care (01) ==
LOC: ENDO 07:38
PROVIDERS: ATTEND Surgery
DX: Z12.11 Encounter for screening for malignant neoplasm of colon (principal); D12.0 Benign neoplasm of cecum; D12.2 Benign neoplasm of ascending colon; D12.3 Benign neoplasm of transverse colon; D12.4 Benign neoplasm of descending colon; D12.5 Benign neoplasm of sigmoid colon; K63.5 Polyp of colon; K57.30 Diverticulosis of large intestine without perforation or abscess without bleeding; J44.9 Chronic obstructive pulmonary disease, unspecified; G47.33 Obstructive sleep apnea (adult) (pediatric); Z79.899 Other long term (current) drug therapy; Z87.891 Personal history of nicotine dependence; Z79.01 Long term (current) use of anticoagulants; Z79.02 Long term (current) use of antithrombotics/antiplatelets